=== PATIENT | female | born 1955 | race African-American/Black ===

== ENCOUNTER 2017-07-25 10:12 | Outpatient (CLI) | payer MEDICARE ==
--- NOTE | 2017-07-25 12:09 | SJPRAD ---
LEFT KNEE TWO VIEWS: History: Bilateral knee pain. FINDINGS/IMPRESSION: Mild degenerative changes are present. No fracture or dislocation or bony destruction is seen. POS: [facility]
--- NOTE | 2017-07-25 12:10 | SJPRAD ---
RIGHT KNEE TWO VIEWS: History: Bilateral knee pain. FINDINGS/IMPRESSION: Mild degenerative change is present. No fracture, dislocation, or bony destruction is seen. POS: [facility]
== END 2017-07-25 10:13 | disposition home or self-care (01) ==
LOC: MWLC RAD 10:12
PROVIDERS: ATTEND Family Medicine
DX: M25.562 Pain in left knee (principal); M17.0 Bilateral primary osteoarthritis of knee

== ENCOUNTER 2017-11-23 12:25 | Outpatient (CLI) | payer MEDICARE ==
--- NOTE | 2017-11-23 13:19 | ULT ---
LEFT LOWER EXTREMITY VENOUS ULTRASOUND WITH DOPPLER: Date; 11/23/17 HISTORY: Left lower leg edema. COMPARISON: 02/02/06. TECHNIQUE: Millard scale, color flow, Doppler imaging, and spectral waveform analysis performed of the left lower e xtremity deep venous system. FINDINGS: There is compressibility, presence of flow, and augmentation in the common femoral vein, femoral vein , and popliteal vein. There is flow in the greater saphenous vein, profunda vein, and posterior tibia l vein. IMPRESSION: No evidence of thrombus in the left lower extremity deep venous system. POS: [facility]
== END 2017-11-23 12:26 | disposition home or self-care (01) ==
LOC: ULT 12:25
PROVIDERS: ATTEND Family Medicine
DX: M79.89 Other specified soft tissue disorders (principal)

== ENCOUNTER 2018-03-08 08:10 | Outpatient (CLI) | payer MEDICARE | END 2018-03-08 08:11 | disposition home or self-care (01) | LOC: BICMAMMO 08:10 | PROVIDERS: ATTEND Family Medicine | DX: Z12.31 Encounter for screening mammogram for malignant neoplasm of breast (principal); Z80.3 Family history of malignant neoplasm of breast | CPT/HCPCS: 77063; 77067 ==

== ENCOUNTER 2019-01-23 09:16 | Outpatient (CLI) | payer MEDICARE ==
--- NOTE | 2019-01-23 10:53 | HP ---
HISTORY OF PRESENT ILLNESS: Ms. Jaki Johnston is a very pleasant 63-year-old accompanied by her daughter, who presents to the [facility] for evaluation of lymphedema, which has been present for approximately 1 year. Specifically, the patient reports swelling and erythema of her left lower extremity over this period of time. The patient states she has not been treated with any antibiotics in the past for the erythema of her left anterior lower leg. She states that she has utilized a compression garment, which she acquired from her brother, "every now and then." She states that she is unsure as to whether this is a prescription strength compression garment or not. She states that she has been utilizing this garment for approximately 2 months. The patient was referred to the [facility] Center by Dr. Leah Jamil on 12/18/2018. PAST MEDICAL HISTORY: 1. Hypertension. 2. Diabetes mellitus. 3. Hypothyroidism. 4. Gastroesophageal reflux disease. 5. History of CVA. 6. Asthma. 7. Congestive heart failure, diastolic. 8. Obstructive sleep apnea. 9. Coronary artery disease. 10. Peripheral vascular disease. 11. Chronic renal failure. 12. Left adrenal adenoma. 13. Gout. PAST SURGICAL HISTORY: 1. x3. 2. Bilateral tubal ligation. 3. Left shoulder surgery. 4. Appendectomy. 5. Hysterectomy. MEDICATIONS: 1. Glipizide. 2. Allopurinol. 3. Hydralazine. 4. Amlodipine. 5. Gabapentin. 6. Atorvastatin. 7. Torsemide. 8. Potassium chloride. 9. Levothyroxine. 10. Advair. 11. ProAir. 12. Flonase. 13. Levemir. 14. Humalog. 15. Coreg. 16. Isosorbide. ALLERGIES: SULFA. SOCIAL HISTORY: Social history is significant for tobacco use of up to 2 packs of cigarettes per day for 10 to 15 years. The patient states that she stopped smoking in 2001. The patient admits to only the rare consumption of alcohol in the past. FAMILY HISTORY: Family history is significant for diabetes mellitus. The patient states that she has 3 sisters and 1 brother, who were diagnosed with diabetes mellitus. Family history is also significant for coronary artery disease. The patient states that she has 1 brother and 2 sisters, who were diagnosed with coronary artery disease. PHYSICAL EXAMINATION: VITAL SIGNS: Temperature 98.0, pulse 91, respirations 22, and blood pressure 166/73. GENERAL: A 63-year-old female sitting on chair in examination room, in no acute distress. HEENT: Normocephalic, atraumatic. NECK: No nuchal rigidity. CHEST: Clear to auscultation. CARDIOVASCULAR: Regular rate and rhythm. ABDOMEN: Soft. EXTREMITIES: No open wounds are present over the left lower leg. Erythema of the left anterior lower leg is present consistent with stasis changes. No maceration of the skin of the left lower leg is noted. A dorsalis pedis pulse is easily palpable on the left. Lymphedema of the left lower leg is present on today's exam. Circumferences at the foot, ankle, calf, and knee are 27 cm, 35 cm, 55 cm, and 50.5 cm. LABORATORY DATA: Accu-Chek 158 ASSESSMENT AND PLAN: 1. Lymphedema tarda. The 3M Coban 2 Layer Compression System will be applied to the left foot and lower leg today. No antibiotics will be prescribed. Today based upon the appearance of the left lower extremity, I will see Ms. Johnston again in 1 week. The patient and her daughter understand and are in agreement with the preceding treatment plan. 2. Hypertension. 3. Diabetes mellitus. The patient's Accu-Chek in clinic today is 158. 4. Hypothyroidism. 5. Gastroesophageal reflux disease. 6. Cerebrovascular accident in 2001. 7. Asthma. 8. Congestive heart failure, diastolic. 9. Obstructive sleep apnea. 10. Coronary artery disease. 11. Peripheral vascular disease. 12. Chronic renal failure. 13. Left adrenal adenoma. 14. Gout. Job ID: [id number]
== END 2019-01-23 09:17 | disposition home or self-care (01) ==
LOC: WCC 09:16
PROVIDERS: ATTEND Family Medicine
DX: I89.0 Lymphedema, not elsewhere classified (principal); I13.0 Hypertensive heart and chronic kidney disease with heart failure and stage 1 through stage 4 chronic kidney disease, or unspecified chronic kidney disease; I50.30 Unspecified diastolic (congestive) heart failure; N18.9 Chronic kidney disease, unspecified; J45.909 Unspecified asthma, uncomplicated; K21.9 Gastro-esophageal reflux disease without esophagitis; I25.10 Atherosclerotic heart disease of native coronary artery without angina pectoris; M10.9 Gout, unspecified; D35.02 Benign neoplasm of left adrenal gland; E11.51 Type 2 diabetes mellitus with diabetic peripheral angiopathy without gangrene; G47.33 Obstructive sleep apnea (adult) (pediatric); E03.9 Hypothyroidism, unspecified; E11.22 Type 2 diabetes mellitus with diabetic chronic kidney disease; Z86.73 Personal history of transient ischemic attack (TIA), and cerebral infarction without residual deficits
CPT/HCPCS: 29581; 36416; 99203; G0463

== ENCOUNTER 2019-01-30 10:09 | Outpatient (CLI) | payer MEDICARE ==
--- NOTE | 2019-01-30 10:22 | PRG ---
DATE OF SERVICE: 01/30/2019 HISTORY OF PRESENT ILLNESS: Ms. Jaki Johnston is a very pleasant 63-year-old accompanied by her daughter, who presents to the [facility] for evaluation of lymphedema, which the patient previously stated had been present for approximately 1 year. Specifically, the patient reported swelling and erythema of her left lower extremity over this period of time. The patient stated she had not been treated with any antibiotics in the past for the erythema of her left anterior lower leg. She stated that she had utilized a compression garment, which she acquired from her brother "every now and then." She stated that she was unsure as to whether the garment was a prescription strained compression garment or not. She stated that she had been utilizing the garment for approximately 2 months when she initially presented to the [facility] Center. The patient was referred to the Wound Center by Dr. Leah Jamil on 12/18/2018. PHYSICAL EXAMINATION: VITAL SIGNS: Temperature 97.9, pulse 85, respirations 18, and blood pressure 198/93. Accu-Chek 127. EXTREMITIES: No open wounds are present over the left lower leg. Erythema of the left anterior lower leg is present consistent with stasis changes. No maceration of the skin of the left lower leg is noted. A dorsalis pedis pulse is easily palpable on the left. Lymphedema of the left lower leg is present on today's exam. Circumferences at the foot, ankle, calf, and knee are 26 cm, 32 cm, 57 cm, and 52 cm. ASSESSMENT AND PLAN: 1. Lymphedema tarda. The 3M Coban 2 Layer Compression System will be applied to the left foot and lower leg today. I will see Ms. Johnston again in 1 week. The patient has been given a prescription for compression garments, knee-high, open or closed toe to yield a compression of 20-30 mmHg. 2. Hypertension. 3. Diabetes mellitus. The patient's Accu-Chek in clinic today is 127. 4. Hypothyroidism. 5. Gastroesophageal reflux disease. 6. Cerebrovascular accident in 2001. 7. Asthma. 8. Congestive heart failure, diastolic. 9. Obstructive sleep apnea. 10. Coronary artery disease. 11. Peripheral vascular disease. 12. Chronic renal failure. 13. Left adrenal adenoma. 14. Gout. Job ID: [id number]
== END 2019-01-30 10:10 | disposition home or self-care (01) ==
LOC: WCC 10:09
PROVIDERS: ATTEND Family Medicine
DX: I89.0 Lymphedema, not elsewhere classified (principal); I13.0 Hypertensive heart and chronic kidney disease with heart failure and stage 1 through stage 4 chronic kidney disease, or unspecified chronic kidney disease; E11.22 Type 2 diabetes mellitus with diabetic chronic kidney disease; I50.32 Chronic diastolic (congestive) heart failure; N18.9 Chronic kidney disease, unspecified; K21.9 Gastro-esophageal reflux disease without esophagitis; E03.9 Hypothyroidism, unspecified; J45.909 Unspecified asthma, uncomplicated; I63.9 Cerebral infarction, unspecified; I25.10 Atherosclerotic heart disease of native coronary artery without angina pectoris; G47.33 Obstructive sleep apnea (adult) (pediatric); I73.9 Peripheral vascular disease, unspecified; M10.9 Gout, unspecified; D35.02 Benign neoplasm of left adrenal gland
CPT/HCPCS: 36416

== ENCOUNTER 2019-02-13 09:04 | Outpatient (CLI) | payer MEDICARE ==
--- NOTE | 2019-02-13 10:16 | PRG ---
DATE OF SERVICE: 02/13/2019 HISTORY: Ms. Jaki Johnston is a very pleasant 63-year-old, who presents to the [facility] for evaluation of lymphedema, which the patient previously stated had been present for approximately 1 year. Specifically, the patient reported swelling and erythema of her left lower extremity over this period of time. The patient stated she had not been treated with any antibiotics in the past for the erythema of her left anterior lower leg. The patient stated that she had utilized a compression garment, which she acquired from her brother "every now and then." She stated that she was unsure as to whether the garment was a prescription strength compression garment or not. She stated that she had been utilizing the garment for approximately 2 months when she initially presented to the [facility] Center. The patient was referred to the Wound Center by Dr. Leah Jamil on 12/18/2018. PHYSICAL EXAMINATION: VITAL SIGNS: Temperature 97.8, pulse 89, blood pressure 199/86. Accu-Chek 84. EXTREMITIES: No open wounds are present over the left lower leg. Erythema of the left anterior lower leg is present. No maceration of the skin of the left lower leg is noted. A dorsalis pedis pulse is easily palpable on the left. Lymphedema of the left lower leg is present on exam today. Circumferences at the foot, ankle, calf, and knee are 26.5 cm, 36 cm, 59 cm, and 52 cm. ASSESSMENT AND PLAN: 1. Lymphedema tarda. Arrangements will continue for in-home lymphedema therapy on 03/20/2019. The patient has been asked to return to clinic on 02/28/2019. The patient was previously given a prescription for compression garments, knee-high, open or closed toe to yield a compression of 20 to 30 mmHg. 2. Left lower extremity cellulitis. The patient has been given a prescription for Keflex 500 mg #21 p.o. b.i.d. x10 days. 3. Hypertension. 4. Diabetes mellitus. The patient's Accu-Chek in clinic today is 84. 5. Hypothyroidism. 6. Gastroesophageal reflux disease. 7. Cerebrovascular accident in 2001. 8. Asthma. 9. Congestive heart failure, diastolic. 10. Obstructive sleep apnea. 11. Coronary artery disease. 12. Peripheral vascular disease. 13. Chronic renal failure. 14. Left adrenal adenoma. 15. Gout. Job ID: [id number]
== END 2019-02-13 09:05 | disposition home or self-care (01) ==
LOC: WCC 09:04
PROVIDERS: ATTEND Family Medicine
DX: I89.0 Lymphedema, not elsewhere classified (principal); L03.116 Cellulitis of left lower limb; I13.0 Hypertensive heart and chronic kidney disease with heart failure and stage 1 through stage 4 chronic kidney disease, or unspecified chronic kidney disease; E11.22 Type 2 diabetes mellitus with diabetic chronic kidney disease; I50.30 Unspecified diastolic (congestive) heart failure; N18.9 Chronic kidney disease, unspecified; E03.9 Hypothyroidism, unspecified; K21.9 Gastro-esophageal reflux disease without esophagitis; J45.909 Unspecified asthma, uncomplicated; G47.33 Obstructive sleep apnea (adult) (pediatric); I25.10 Atherosclerotic heart disease of native coronary artery without angina pectoris; I73.9 Peripheral vascular disease, unspecified; M10.9 Gout, unspecified; D35.02 Benign neoplasm of left adrenal gland; Z86.73 Personal history of transient ischemic attack (TIA), and cerebral infarction without residual deficits
CPT/HCPCS: 97602

== ENCOUNTER 2019-02-28 09:24 | Outpatient (CLI) | payer MEDICARE ==
--- NOTE | 2019-02-28 10:46 | PRG ---
DATE OF SERVICE: 02/28/2019 HISTORY: Ms. Jaki Johnston is a very pleasant 63-year-old, who presents to the [facility] Center for evaluation of lymphedema, which the patient previously stated had been present for approximately 1 year. Specifically, the patient reported swelling and erythema of her left lower extremity over this period of time. The patient stated she had not been treated with any antibiotics in the past for the erythema of her left anterior lower leg. The patient stated that she had utilized a compression garment, which she acquired from her brother, "every now and then." She stated that she was unsure as to whether the garment was a prescription strength compression garment or not. She stated that she had been utilizing the garment for approximately 2 months when she initially presented to the W[facility] Center. The patient was referred to the Wound Center by Dr. Leah Jamil on 12/18/2018. At the time of the patient's last visit, Ms. Johnston was placed on Keflex 500 mg, #20, one p.o. b.i.d. x10 days for left lower extremity cellulitis. The patient continues to experience erythema and swelling of her left lower leg. PHYSICAL EXAMINATION: VITAL SIGNS: Temperature 98.1, pulse 83, respirations 21, blood pressure 133/65. Accu-Chek 137. EXTREMITIES: No open wounds are present over the left lower leg. Erythema of the left lower leg is present. No maceration of the skin of the left lower leg is noted. Lymphedema of the left lower leg is present on today's exam. Circumferences at the ankle, calf, and knee are 37 cm, 55 cm, and 55 cm. ASSESSMENT AND PLAN: 1. Lymphedema tarda. Arrangements will continue for in-home lymphedema therapy. The patient will return to the Wound Center on 04/04/2019. The patient was previously given a prescription for compression garments, knee-high, open or closed toe to yield a compression of 20 to 30 mmHg. 2. Left lower extremity cellulitis. The patient has been given a prescription for clindamycin 300 mg, #30, one p.o. t.i.d. x10 days. Arrangements will also be made for MRI of the left lower leg to look for findings suggestive of osteomyelitis. 3. Hypertension. 4. Diabetes mellitus. The patient's Accu-Chek in clinic today is 137. 5. Hypothyroidism. 6. Gastroesophageal reflux disease. 7. Cerebrovascular accident in 2001. 8. Asthma. 9. Congestive heart failure, diastolic. 10. Obstructive sleep apnea. 11. Coronary artery disease. 12. Peripheral vascular disease. 13. Chronic renal failure. 14. Left adrenal adenoma. 15. Gout. Job ID: [id number]
== END 2019-02-28 09:25 | disposition home or self-care (01) ==
LOC: WCC 09:24
PROVIDERS: ATTEND Family Medicine
DX: I89.0 Lymphedema, not elsewhere classified (principal); L03.116 Cellulitis of left lower limb; E11.22 Type 2 diabetes mellitus with diabetic chronic kidney disease; I13.0 Hypertensive heart and chronic kidney disease with heart failure and stage 1 through stage 4 chronic kidney disease, or unspecified chronic kidney disease; I50.30 Unspecified diastolic (congestive) heart failure; N18.9 Chronic kidney disease, unspecified; J45.909 Unspecified asthma, uncomplicated; M10.9 Gout, unspecified; D35.02 Benign neoplasm of left adrenal gland; E11.51 Type 2 diabetes mellitus with diabetic peripheral angiopathy without gangrene; I25.10 Atherosclerotic heart disease of native coronary artery without angina pectoris; G47.33 Obstructive sleep apnea (adult) (pediatric); Z86.73 Personal history of transient ischemic attack (TIA), and cerebral infarction without residual deficits
CPT/HCPCS: 97602

== ENCOUNTER 2019-04-04 12:12 | Outpatient (CLI) | payer MEDICARE ==
--- NOTE | 2019-04-04 11:35 | PRG ---
DATE OF SERVICE: 04/04/2019 HISTORY: Ms. Jaki Johnston is a very pleasant 63-year-old, who presents to the [facility] for evaluation of lymphedema, which the patient previously stated had been present for approximately 1 year. Specifically, the patient reported swelling and erythema of her left lower extremity over this period of time. Prior to being seen in the Wound Center, the patient stated she had not been treated with any antibiotics for the erythema of her left anterior lower leg. The patient stated that she had utilized a compression garment, which she acquired from her brother , "every now and then." She stated that she was unsure as to whether the garment was a prescription strength compression garment or not. She stated that she had been utilizing the garment for approximately 2 months when she initially presented to the W[facility] Center. The patient was referred to the Wound Center by Dr. Leah Jamil on 12/18/2018. After being seen in the Wound Center, the patient was treated for left lower extremity cellulitis with Keflex followed by clindamycin. Today, the patient states that the swelling of her right and left lower extremities has returned to baseline and the erythema of the left anterior lower leg is also of the degree with which she presented initially to the Wound Center. PHYSICAL EXAMINATION: VITAL SIGNS: Temperature 98.1, pulse 74, respirations 18, blood pressure 136/ 65. Accu-Chek 85. EXTREMITIES: No open wounds are present over the right or left lower leg. Erythema of the left anterior lower leg is present. No maceration of the skin of the left lower leg is present. Lymphedema of the right and left lower legs is present on exam today. Hyperpigmentation of the skin of the right and left lower legs secondary to hemosiderin deposition is noted on exam today. ASSESSMENT AND PLAN: 1. Lymphedema tarda. Arrangements will continue for in-home lymphedema therapy. The patient was previously given a prescription for compression garments, knee- high, open or closed toe to yield a compression of 20 to 30 mmHg. 2. Erythema of left anterior lower leg. The degree of erythema of the left anterior lower leg is now at baseline. The patient was previously treated for left lower extremity cellulitis with Keflex followed by clindamycin. I have discussed the treatment plan with Dr. Lito Valladares of Infectious Diseases and the patient is scheduled to see Dr. Valladares on 04/30/2019 at 10 a.m. I have explained to the patient that imaging will be obtained after evaluation by Dr. Valladares if warranted. 3. Hypertension. 4. Diabetes mellitus. The patient's Accu-Chek in clinic today is 85. 5. Hypothyroidism. 6. Gastroesophageal reflux disease. 7. Cerebrovascular accident in 2001. 8. Asthma. 9. Congestive heart failure, diastolic. 10. Obstructive sleep apnea. 11. Coronary artery disease. 12. Peripheral vascular disease. 13. Chronic renal failure. 14. Left adrenal adenoma. 15. Gout. Job ID: [id number] [facility]
== END 2019-04-04 12:13 | disposition home or self-care (01) ==
LOC: WCC 12:12
PROVIDERS: ATTEND Family Medicine
DX: I89.0 Lymphedema, not elsewhere classified (principal); L53.9 Erythematous condition, unspecified; E11.22 Type 2 diabetes mellitus with diabetic chronic kidney disease; I13.0 Hypertensive heart and chronic kidney disease with heart failure and stage 1 through stage 4 chronic kidney disease, or unspecified chronic kidney disease; I50.30 Unspecified diastolic (congestive) heart failure; N18.9 Chronic kidney disease, unspecified; J45.909 Unspecified asthma, uncomplicated; E03.9 Hypothyroidism, unspecified; K21.9 Gastro-esophageal reflux disease without esophagitis; I73.9 Peripheral vascular disease, unspecified; G47.33 Obstructive sleep apnea (adult) (pediatric); I25.10 Atherosclerotic heart disease of native coronary artery without angina pectoris; D35.02 Benign neoplasm of left adrenal gland; M10.9 Gout, unspecified; Z86.73 Personal history of transient ischemic attack (TIA), and cerebral infarction without residual deficits
CPT/HCPCS: 97139; G0463; 99212

== ENCOUNTER 2019-08-08 12:34 | Observation (INO) | payer MEDICARE ==
[2019-08-08] MEDS ORDERED: Lorazepam 2 MG/ML VIAL ONE (13:37)
--- NOTE | 2019-08-08 13:59 | RAD ---
Exam: Chest one view HISTORY:Dyspnea Comparison: 04/30/2017 FINDINGS: Cardiac silhouette:Cardiomegaly. Aorta: Atherosclerosis of the aortic knob Pulmonary vessels: Slightly prominent Costophrenic angles: Clear LUNGS: No masses or consolidation. Pneumothorax: None Osseous abnormalities: None IMPRESSION: 1. Cardiomegaly with mild pulmonary vascular prominence. Correlate for volume overload. 2. Atherosclerosis
[2019-08-08 14:16] LABS: Hemoglobin 14.1 g/dL (12.0-16.0); Mean Corpuscular HGB CONC 32.1 g/dL (32.0-36.0); Mean Corpuscular Hemoglobin 27.5 pg (27.0-31.0); Mean Corpuscular Volume 85.8 fL (78.0-98.0); Mean Platelet Volume 10.5 fL (7.4-10.4); Platelet Count 195 thou/uL (130-400); RBC Distribution Width 14.6 % (11.5-14.5); Red Blood Cell (RBC) Count 5.12 mill/uL (4.20-5.40); White Blood Cell (WBC) Count 6.6 thou/uL (4.8-10.8)
[2019-08-08 14:33] LABS: ALT (SGPT) 15 U/L (8-55); AST (SGOT) 16 U/L (5-34); Albumin 3.9 g/dL (3.4-4.8); Alkaline Phosphatase 152 U/L (40-110); Anion Gap 12 mmol/L (10-20); BUN (Urea Nitrogen) 15 mg/dL (9.8-20.1); Bilirubin, Total 0.6 mg/dL (0.2-1.2); CK (CPK) 283 U/L (29-168); Calc. Creatinine Clearance 0 mL/min (70-130); Calcium 9.6 mg/dL (7.8-10.44); Carbon Dioxide 31 mmol/L (23-31); Chloride 102 mmol/L (98-107); Estimated GFR-MDRD 41; Globulin 3.9 g/dL (2.4-3.5); Glucose 203 mg/dL (80-115); Potassium 3.5 mmol/L (3.5-5.1); Protein, Total 7.8 g/dL (6.0-8.3); Sodium 141 mmol/L (136-145)
[2019-08-08 14:39] LABS: Eosinophils 3 % (0-10); Large Platelets SLIGHT; Lymphocytes 19 % (21-51); MDiff Complete? YES; Monocytes 3 % (0-10); Neutrophil 75 % (42-75); Platelet Morphology Comment Appears Adequate
[2019-08-08] MEDS ORDERED: Morphine 10 MG/ML VIAL ONE ×2 (14:54→16:35)
[2019-08-08] MEDS ORDERED: Aspirin 81 mg Enteric Coated Tablet ONE (14:54)
[2019-08-08 14:55] LABS: CKMB 1.5 ng/mL (0-6.6)
[2019-08-08 17:23] LABS: Troponin I 0.024 ng/mL (< 0.028)
[2019-08-08] MEDS ORDERED: Acetaminophen 650 MG Suppository PR PRN (17:43)
[2019-08-08] MEDS ORDERED: Ondansetron ODT 4 MG TAB PO PRN (17:43)
[2019-08-08] MEDS ORDERED: Ondansetron PF 4 MG/2 ML Vial IVP PRN (17:43)
[2019-08-08] MEDS ORDERED: Dextrose 50% Abboject 50 ML SYRINGE SLOW IVP PRN (17:51)
[2019-08-08] MEDS ORDERED: Dextrose 5% in Water 1,000 ML IV PRN (17:51)
[2019-08-08] MEDS ORDERED: HumaLOG 300 UNITS/3 ML VIAL SC PRN ×2 (17:51)
[2019-08-08 18:01] LABS: Actual Bicarbonate (HCO3a) 31.6 mEq/L (22-28); Base Excess (BEa) 4.5 mEq/L (-2.0 to +3.0); CO2 Tension 58.9 mmHg (35.0-45.0); Calcium, Ionized 1.16 mmol/L (1.12-1.30); Carboxyhemoglobin (COHb) 0.9 gm% (0.0-3.0); Hemoglobin (Hb) 12.8 g/dL (12.0-16.0); O2 Tension (PaO2) 73.6 mmHg (> 80.0); Potassium - ABG Lab 3.61 mmol/L (3.70-5.30); pH, Arterial 7.35 (7.35-7.45)
[2019-08-08 18:06] LABS: Puncture Site RRA
[2019-08-08 18:07] LABS: ALV-art Gradient 52.415 (0-20)
--- NOTE | 2019-08-08 19:17 | CT ---
CT Cervical Spine WO Con History: Neck pain. Syncope Comparison: None. Findings: The occipital condyles are intact. The odontoid process is intact. No acute fracture or mal alignment. The exam is limited due to photon starvation from habitus. Mild degenerative changes of the temporomandibular joints. The skull base is intact. The mastoids are clear. Moderate vascular calcifications of the carotid bulbs. No definite transverse process fracture. Posterior ribs are intact. Lung apices are clear. Impression: No acute fracture or malalignment of the cervical spine.
[2019-08-08 20:17] VITALS: BMI 61.0
[2019-08-08 20:25] LABS: Troponin I 0.026 ng/mL (< 0.028)
[2019-08-08] MEDS ORDERED: Famotidine/PF 20 mg/2ml Vial SLOW IVP SCH (21:00)
[2019-08-08] MEDS ORDERED: Famotidine 20 MG TAB PO SCH ×2 (21:30→22:00)
--- NOTE | 2019-08-08 21:35 | ULT ---
US Venous Doppler Bilat History: Lower extremity edema and pain Comparison: None. Findings: Real-time grayscale, color, and spectral analysis of the bilateral lower extremity venous s ystem was performed. The common femoral, femoral, proximal portions greater saphenous and deep femoral veins as well as the popliteal and posterior tibial veins were interrogated. Normal flow, augmentation, and compression. Impression: 1. No deep venous thrombosis. 2. Lower extremity edema bilaterally.
[2019-08-08] MEDS ORDERED: Atorvastatin Calcium 40 MG TAB PO SCH (22:00)
[2019-08-08] MEDS ORDERED: Carvedilol 25 MG TAB PO SCH (22:00)
[2019-08-08] MEDS ORDERED: Insulin Glargine 62 UNITS in Pre-Filled Syringe 1 EACH SC SCH (22:00)
[2019-08-08] MEDS ORDERED: hydrALAZINE 25 MG TAB PO SCH (22:00)
--- NOTE | 2019-08-09 00:29 | HP ---
CHIEF COMPLAINT: Syncope and shortness of breath due to anxiety. HISTORY OF PRESENT ILLNESS: Ms. Johnston is a very pleasant 63-year-old woman, with a known history of COPD for which she does not require oxygen, however, the CPAP machine, which she uses at night for orthopnea, she has been using intermittently throughout the day due to shortness of breath with exertion. Per family and the patient, this has been longstanding. Today, the patient presents with an episode of hyperventilation followed by syncope after she received bad news. She lives with her family at the time and was sitting and therefore was able to be caught by her family. She lost consciousness for a few seconds. It did happen 2 or 3 times. The patient had labored breathing and seemed to be experiencing anxiety prior to fainting. She denies having any chest pain. Has been well in herself in recent days. She reports having a history of CHF, hypertension, and diabetes. She does follow with her doctor regularly and her multiple sclerosis nurse is Dr. Quezada. In the emergency department, she was complaining of severe pain in her neck. Family states that when she fainted, her head "snapped backward" before they were able to capture. Due to the severe neck pain, the patient was given morphine. It appears she received 8 mg of morphine at 3:00 p.m. and also was given 1 mg of lorazepam around 2:00 p.m. Laboratory studies in the ER demonstrated a normal full blood count. She had a creatinine of 1.55 and GFR of 41, both slightly worse from baseline. She was noted to have a CK of 283 and an indeterminate troponin of 0.035, therefore given 325 mg of aspirin with plans to trend her troponins. Her BNP was normal at 62.6. A chest x-ray was obtained, demonstrating cardiomegaly with mild pulmonary vascular prominence. There was atherosclerosis present. The last echo on file was from February 2017. REVIEW OF SYSTEMS: The patient denies having any issues with her appetite. Denies any nausea or vomiting. Denies any abdominal pain or cramping, but does report having issues with constipation and states she has not had a bowel movement in one week. She does report having flatus. She states this is typical for her. Has been eating as normal. Denies having any urinary symptoms. Again, no chest pain or palpitations. She does have shortness of breath at baseline and it does not seem to be worse than it has been in the last several weeks. PAST MEDICAL HISTORY: 1. Morbid obesity. 2. Chronic congestive diastolic heart failure: 3. Severe coronary artery disease. Previously recommended CABG; however, due to her weight, she was not felt to be a good candidate. She had been advised bariatric surgery. Previously seen by Dr. Horton. 4. Diabetes mellitus. 5. Obstructive sleep apnea, on home CPAP, she does use this throughout the day intermittently for shortness of breath. Has never had home O2 eval. 6. CVA with residual left-sided weakness. 7. Hypertension. 8. Dyslipidemia. 9. Hypothyroidism. 10. Chronic back pain. 11. Peripheral arterial disease. 12. Chronic vaginitis. 13. Fatty liver. 14. Left adrenal mass. 15. Chronic kidney disease. PAST SURGICAL HISTORY: 1. PTCA with PCI in 2009. 2. Cardiac catheterization in 2011 showing severe three-vessel coronary artery disease. 3. Hysterectomy. 4. Left rotator cuff surgery. 5. x3. SOCIAL HISTORY: The patient lives with her family. She previously smoked 2 packs per day, but quit more than 10 years ago. No alcohol use or illicit drug use. ALLERGIES: SULFA. CURRENT MEDICATIONS: 1. Tylenol. 2. Furosemide. 3. Glipizide. 4. Isosorbide. 5. Levothyroxine. 6. Allopurinol. 7. Atorvastatin. 8. Calcitriol. 9. Bupropion. PHYSICAL EXAMINATION: GENERAL: The patient is morbidly obese and appears somnolent, but easily woken and able to answer questions. HEENT: Normocephalic and atraumatic. Pupils are equal, round, reactive to light. Extraocular movements intact. Oropharynx is clear. NECK: Supple. She does have tenderness along the C-spine with some discomfort with movement. LUNGS: Clear to auscultation with reduced breath sounds at the bilateral bases. It is difficult given her body habitus. CARDIAC: Regular rate and rhythm. ABDOMEN: Soft, nontender, nondistended. Bowel sounds present. Morbidly obese. EXTREMITIES: Bilateral lower extremity edema, more significant on the left with signs of chronic stasis dermatitis with some bullae. There is a slight erythematous appearance with very slight warm to touch on the anterior left lower leg. The patient states it always looks like this and she has been treated in the past for cellulitis. NEUROLOGIC: Alert and oriented x3. The patient is drowsy, likely due to morphine and Ativan given, but easily woken and able to answer questions as well as follow commands. INVESTIGATIONS: As mentioned above in HPI. IMPRESSION AND PLAN: 1. Ms. Johnston is a very pleasant 63-year-old woman, who presents following a syncopal episode after hearing bad news and having an episode of anxiety with hyperventilation. She likely had a vasovagal episode. She does have chronic shortness of breath likely due to combination of her chronic obstructive pulmonary disease and congestive heart failure. She no longer smokes, but did smoke very heavily in the past. Has never been assessed for home O2 eval and has been using her CPAP intermittently to help with her shortness of breath while at home. She is known to Dr. Quezada, but does not recall the last time she saw him. She did see her primary care physician about 3 months ago. The patient's breathing appears slightly labored, but the patient and family state this is her baseline. Saturations are 92% on room air. We will continue to monitor. Chest x-ray was done and unremarkable. I have requested home O2 eval. 2. With regard to her neck pain, family states her head fell hard backward when she fainted. We will obtain a CT of the cervical spine given the cervical spine tenderness. The patient given morphine in the emergency department. No pain at present. 3. Syncope, likely vasovagal episode due to stress/anxiety attack. We will obtain carotid Dopplers. We will repeat echo since it has been more than 2 years. We will obtain orthostatic blood pressure. EKG done and unremarkable. The patient will remain on continuous cardiac monitoring. 4. Hypertension. Resume home medications once verified. Monitor blood pressure. 5. Diabetes mellitus. Resume home insulin once verified. Hold oral medications. Insulin sliding scale initiated. Monitor blood glucose. 6. Hypothyroidism. Resume home medications once verified. 7. Chronic obstructive pulmonary disease. Jaida p.r.n. The patient's family will bring her CPAP machine. 8. Left lower extremity swelling/erythema. The patient states this is chronic and stable. We will add lactic acid and monitor white count. We will hold antibiotics for now. We will obtain a venous Doppler to rule out deep venous thrombosis. The patient states the left leg is always more swollen than the right. 9. Gastrointestinal prophylaxis. Resume home medications. 10. Code status full. The patient's case to be discussed with attending for further recommendations. Job ID: [id number]
[2019-08-09 05:01] LABS: #Eosinphils 0.2 thou/uL (0.0-0.7); #Lymphocytes 1.6 thou/uL (1.20-3.40); #Monocytes 0.5 thou/uL (0.11-0.59); #Neutrophils 4.2 thou/uL (1.40-6.50); %Basophils 0.1 % (0.0-1.0); %Eosinophils 2.8 % (0.0-10.0); %Lymphocytes 24.1 % (21.0-51.0); %Monocytes 8.3 % (0.0-10.0); %Neutrophils 64.7 % (42.0-75.0); Hemoglobin 12.8 g/dL (12.0-16.0); Mean Corpuscular HGB CONC 32.2 g/dL (32.0-36.0); Mean Corpuscular Hemoglobin 27.9 pg (27.0-31.0); Mean Corpuscular Volume 86.6 fL (78.0-98.0); Mean Platelet Volume 9.7 fL (7.4-10.4); Platelet Count 231 thou/uL (130-400); RBC Distribution Width 14.4 % (11.5-14.5); Red Blood Cell (RBC) Count 4.59 mill/uL (4.20-5.40); White Blood Cell (WBC) Count 6.4 thou/uL (4.8-10.8)
[2019-08-09 05:19] LABS: Anion Gap 12 mmol/L (10-20); BUN (Urea Nitrogen) 15 mg/dL (9.8-20.1); Calc. Creatinine Clearance 107 mL/min (70-130); Calcium 8.9 mg/dL (7.8-10.44); Carbon Dioxide 28 mmol/L (23-31); Chloride 102 mmol/L (98-107); Estimated GFR-MDRD 45; Glucose 221 mg/dL (80-115); Potassium 3.8 mmol/L (3.5-5.1); Sodium 138 mmol/L (136-145)
[2019-08-09] MEDS: Levothyroxine Sodium 100 MCG TAB PO SCH (06:00)
[2019-08-09] MEDS ORDERED: INSULIN DETEMIR SQ SCH (09:00)
[2019-08-09] MEDS: Aspirin 325 MG TAB PO SCH (09:04)
[2019-08-09] MEDS: Bupropion 150 MG SR TAB PO SCH (09:04)
[2019-08-09] MEDS: hydrALAZINE 25 MG TAB PO SCH ×3 (09:04→21:39)
[2019-08-09] MEDS: Famotidine 20 MG TAB PO SCH ×2 (09:04→21:39)
[2019-08-09] MEDS: Calcitriol 0.25 MCG CAP PO SCH (09:04)
[2019-08-09] MEDS: HumaLOG 300 UNITS/3 ML VIAL SC SCH ×3 (09:05→21:41)
[2019-08-09] MEDS: Amlodipine 10 MG TAB PO SCH (09:05)
[2019-08-09] MEDS: Allopurinol 100 MG TAB PO SCH (09:05)
[2019-08-09] MEDS: Carvedilol 25 MG TAB PO SCH ×2 (09:05→21:39)
[2019-08-09] MEDS: Insulin Glargine 62 UNITS in Pre-Filled Syringe 1 EACH SC SCH ×2 (09:06→21:35)
--- NOTE | 2019-08-09 10:30 | ULT ---
BILATERAL CAROTID DUPLEX ULTRASOUND: Date: 08/09/19 HISTORY: Syncope. FINDINGS: Real-time color Doppler evaluation of the right and left carotid systems was performed. This does not show any significant plaque formation. On the right side, peak systolic velocities of the common carotid were 67 cm/second. Internal carotid velocities were 67 cm/second and external carotid velocities were 66 cm/second. On the left side, peak systolic velocities of the common carotid were 89 cm/second. Internal carotid velocities were 95 cm/second and external carotid velocities were 53 cm/second. Vertebral flow was antegrade bilaterally. IMPRESSION: No evidence of hemodynamically significant stenosis of either internal carotid artery. POS: TPC
[2019-08-09] MEDS: Acetaminophen 325 MG TAB PO PRN ×2 (10:38→21:40)
[2019-08-09] MEDS ORDERED: Atorvastatin Calcium 40 MG TAB PO SCH (21:00)
[2019-08-10] MEDS: Levothyroxine Sodium 100 MCG TAB PO SCH (06:15)
--- NOTE | 2019-08-10 07:31 | PDOC.HOSPP ---
- Subjective Encounter Date: 08/09/19 Encounter Time: 17:00 Subjective: Patient seen and examined for syncope. No new episode. No CP. No other complaints. No overnight events - Objective Vital Signs & Weight: Vital Signs (12 hours) Temp Pulse Resp BP BP BP Pulse Ox 08/10/19 03:34 98.6 F 86 20 129/60 94 L 08/09/19 21:39 86 131/61 08/09/19 20:25 98.3 F 86 18 131/61 92 L Weight Weight 366 lb 14.4 oz I&O: 08/09/19 08/10/19 08/11/19 06:59 06:59 06:59 Intake Total 700 Output Total 900 Balance -200 Result Diagrams: 08/09/19 04:47 08/09/19 04:47 Additional Labs: Accuchecks 08/10/19 08/09/19 08/09/19 06:17 20:33 17:07 POC Glucose 145 H 118 H 103 08/09/19 11:08 POC Glucose 176 H EKG Reviewed by me: Yes (Tele SR) Hospitalist ROS - Review of Systems Respiratory: denies: cough, dry, shortness of breath, hemoptysis, SOB with excertion, pleuritic pain, sputum, wheezing, other Cardiovascular: denies: chest pain, palpitations, orthopnea, paroxysmal noc. dyspnea, edema, light headedness, other Gastrointestinal: reports: constipation. denies: nausea, vomiting, abdominal pain, diarrhea, melena, hematochezia, other - Medication Medications: Active Medications Generic Name Dose Route Start Last Admin Trade Name Freq PRN Reason Stop Dose Admin Acetaminophen 650 mg 08/08/19 17:43 08/09/19 21:40 Tylenol PO 650 mg Q4H PRN Administration Headache/Fever/Mild Pain (1-3) Allopurinol 200 mg 08/09/19 09:00 08/09/19 09:05 Zyloprim PO 200 mg DAILY RONY Administration Amlodipine Besylate 10 mg 08/09/19 09:00 08/09/19 09:05 Norvasc PO 10 mg DAILY RONY Administration Aspirin 325 mg 08/09/19 09:00 08/09/19 09:04 Aspirin PO 325 mg DAILY RONY Administration Atorvastatin Calcium 80 mg 08/09/19 21:00 08/09/19 21:40 Lipitor PO 80 mg HS RONY Administration Bupropion HCl 150 mg 08/09/19 09:00 08/09/19 09:04 Wellbutrin Sr PO 150 mg DAILY RONY Administration Calcitriol 0.25 mcg 08/09/19 09:00 08/09/19 09:04 Rocaltrol PO 0.25 mcg DAILY RONY Administration Carvedilol 25 mg 08/09/19 09:00 08/09/19 21:39 Coreg PO 25 mg BID RONY Administration Famotidine 20 mg 08/09/19 09:00 08/09/19 21:39 Pepcid PO 20 mg Q12HR RONY Administration Hydralazine HCl 100 mg 08/09/19 09:00 08/09/19 21:39 Apresoline PO 100 mg TID RONY Administration Insulin Glargine 62 units/ 0.62 mls @ 0 mls/hr 08/09/19 09:00 08/09/19 21:35 Miscellaneous Medication SC 0.3 mls BID RONY Administration Insulin Human Lispro 0 units 08/08/19 17:51 08/09/19 06:01 Humalog SC 2 unit .MILD SLIDING SCALE PRN Administration Mild Correctional Scale Insulin Human Lispro 0 units 08/08/19 17:51 08/08/19 22:33 Humalog SC 2 unit .BEDTIME SLIDING SC PRN Administration Bedtime Correctional Scale Insulin Human Lispro 20 units 08/09/19 09:00 08/09/19 21:41 Humalog SC Not Given TID RONY Isosorbide Mononitrate 60 mg 08/09/19 09:00 08/09/19 21:40 Imdur PO 60 mg TID RONY Administration Levothyroxine Sodium 100 mcg 08/09/19 06:00 08/10/19 06:15 Synthroid PO 100 mcg 0600 RONY Administration Ondansetron HCl 4 mg 08/08/19 17:43 08/09/19 10:38 Zofran Odt PO 4 mg Q6H PRN Administration Nausea/Vomiting - Exam General Appearance: NAD Heart: RRR, no gallops Respiratory: CTAB, no rales Gastrointestinal: soft, non-tender, normal bowel sounds Extremities: no cyanosis Hosp A/P - Plan DVT proph w/SCDs Syncope suspected to be due to Vasovagal episode Morbid obesity HTN HLD DM2 CAD PLAN Await Echo Cont tele monitoring Check Orthostatics Cont sliding scale Cont other meds
[2019-08-10] MEDS: Calcitriol 0.25 MCG CAP PO SCH (08:25)
[2019-08-10] MEDS: Aspirin 325 MG TAB PO SCH (08:25)
[2019-08-10] MEDS: Bupropion 150 MG SR TAB PO SCH (08:25)
[2019-08-10] MEDS: hydrALAZINE 25 MG TAB PO SCH (08:25)
[2019-08-10] MEDS: Insulin Glargine 62 UNITS in Pre-Filled Syringe 1 EACH SC SCH (08:26)
[2019-08-10] MEDS: Famotidine 20 MG TAB PO SCH (08:26)
[2019-08-10] MEDS: Amlodipine 10 MG TAB PO SCH (08:26)
[2019-08-10] MEDS: Allopurinol 100 MG TAB PO SCH (08:26)
[2019-08-10] MEDS: Carvedilol 25 MG TAB PO SCH (08:26)
[2019-08-10] MEDS: HumaLOG 300 UNITS/3 ML VIAL SC SCH (08:26)
[2019-08-10] MEDS ORDERED: Senokot S 8.6-50 MG TAB PO SCH (09:00)
[2019-08-10] MEDS ORDERED: Polyethylene Glycol 3350 17 GM Packet PO SCH (09:00)
[2019-08-10 12:15] VITALS: BP 162/72; TEMP 97.3
--- NOTE | 2019-08-11 00:09 | DIS ---
DATE OF ADMISSION: 08/08/2019 DATE OF DISCHARGE: 08/10/2019 DISCHARGE DISPOSITION: Home. FOLLOWUP: Follow up with primary care physician, Dr. Sanchez, in 1 week. ALLERGIES: PATIENT IS ALLERGIC TO SULFA. DISCHARGE MEDICATION: Doxazosin has been discontinued. All other home medications were left unchanged. Patient was seen and examined on the day of discharge. Denies any new complaints. BRIEF HOSPITAL COURSE: Patient is a 63-year-old female with multiple comorbidities, presented to the hospital with a syncopal episode along with shortness of breath after she received a bad news. Please refer to the history and physical for further details. The patient was monitored on the telemetry unit. Telemetry monitoring did not reveal significant arrhythmias. Bilateral lower extremity Doppler was negative. She also had a CT of the cervical spine that was negative for acute fractures or dislocation. Carotid Doppler was negative for hemodynamically significant stenosis. Echocardiogram showed ejection fraction of 55% to 60% with trace tricuspid regurgitation. Exact etiology of syncope appears to be unclear. It appears to be probably vasovagal in nature. Her blood pressure this morning was 129/60. She did not receive doxazosin during this hospital stay. All other home medications were left unchanged. FINAL DIAGNOSES: 1. Syncope, suspected to be due to vasovagal episode. 2. Morbid obesity with a BMI of 61.1. 3. Hypertension. 4. Hyperlipidemia. 5. Coronary artery disease. 6. Diabetes mellitus, type 2. 7. Chronic kidney disease, stage 3. 8. Slightly elevated troponin, probably secondary to demand ischemia/type 2 myocardial infarction. PLAN: Plan of care was discussed with the patient and the family in detail. They stated understanding. Job ID: [id number]
--- NOTE | 2019-08-17 13:13 | EKG ---
Test Reason : Blood Pressure : / mmHG Vent. Rate : 083 BPM Atrial Rate : 083 BPM P-R Int : 148 ms QRS Dur : 102 ms QT Int : 404 ms P-R-T Axes : 028 -21 085 degrees QTc Int : 474 ms Normal sinus rhythm Inferior infarct , age undetermined Anterior infarct , age undetermined Abnormal ECG Leftward axis Confirmed by RICKIE VOGEL, CHERISE ([id number]), editor school photograph BOBBY GUIDRY ([id number]) on 08/17/2019 1:13:19 PM Referred By: Confirmed By:CHERISE DAMIAN MD
== END 2019-08-10 13:58 | disposition home or self-care (01) ==
LOC: ERS 12:34 → 2SW 16:17
PROVIDERS: ADMIT Internal Medicine; ATTEND Internal Medicine
DX: R55 Syncope and collapse (principal); R06.4 Hyperventilation; F41.9 Anxiety disorder, unspecified; M54.2 Cervicalgia; I13.0 Hypertensive heart and chronic kidney disease with heart failure and stage 1 through stage 4 chronic kidney disease, or unspecified chronic kidney disease; E11.22 Type 2 diabetes mellitus with diabetic chronic kidney disease; N18.3 Chronic kidney disease, stage 3 (moderate); G47.33 Obstructive sleep apnea (adult) (pediatric); I50.32 Chronic diastolic (congestive) heart failure; I25.10 Atherosclerotic heart disease of native coronary artery without angina pectoris; J44.9 Chronic obstructive pulmonary disease, unspecified; E66.01 Morbid (severe) obesity due to excess calories; E78.00 Pure hypercholesterolemia, unspecified; E78.5 Hyperlipidemia, unspecified; I69.354 Hemiplegia and hemiparesis following cerebral infarction affecting left non-dominant side; I73.9 Peripheral vascular disease, unspecified; N76.1 Subacute and chronic vaginitis; Z68.44 Body mass index [BMI] 60.0-69.9, adult; Z79.84 Long term (current) use of oral hypoglycemic drugs; Z79.899 Other long term (current) drug therapy; Z87.891 Personal history of nicotine dependence; Z88.2 Allergy status to sulfonamides; Z99.89 Dependence on other enabling machines and devices
CPT/HCPCS: 71045; 72125; 80048; 80053; 82550; 82553; 82805; 82962 ×3; 83605; 83880; 84484 ×2; 85025 ×2; 93005; 93306; 93880; 93970; 94760; 96374; 96375; 96376; 97139 ×2; 97530 ×2; 99285; G0378 ×4; 36415; 36416; J1815; J2060; J2270; Q0162

== ENCOUNTER 2020-02-22 10:12 | Emergency (ER) | payer MEDICARE, OTHER ==
[2020-02-22] MEDS ORDERED: Ketorolac Tromethamine 30 MG/ML VIAL ONE (11:02)
== END 2020-02-22 11:26 | disposition home or self-care (01) ==
LOC: ERS 10:12
DX: M54.41 Lumbago with sciatica, right side (principal); I25.10 Atherosclerotic heart disease of native coronary artery without angina pectoris; E78.5 Hyperlipidemia, unspecified; E11.22 Type 2 diabetes mellitus with diabetic chronic kidney disease; E03.9 Hypothyroidism, unspecified; E78.00 Pure hypercholesterolemia, unspecified; E66.9 Obesity, unspecified; I13.0 Hypertensive heart and chronic kidney disease with heart failure and stage 1 through stage 4 chronic kidney disease, or unspecified chronic kidney disease; I50.9 Heart failure, unspecified; N18.3 Chronic kidney disease, stage 3 (moderate); J45.909 Unspecified asthma, uncomplicated; K76.0 Fatty (change of) liver, not elsewhere classified; Z87.891 Personal history of nicotine dependence; Z86.73 Personal history of transient ischemic attack (TIA), and cerebral infarction without residual deficits; Z79.899 Other long term (current) drug therapy
CPT/HCPCS: 96372; 99283; J1885

== ENCOUNTER 2020-03-04 12:11 | Outpatient (CLI) | payer MEDICARE, OTHER ==
--- NOTE | 2020-03-04 12:31 | RAD ---
TWO VIEWS LUMBAR SPINE: HISTORY: Sciatica. FINDINGS: Five lumbar-type vertebrae. Lumbar spine vertebral body height is maintained. No fracture. Mild loss of disc space height at L1-L2, L2-L3, L3-L4 and L4-L5. 1.1 cm of anterolisthesis of L4 upon L5. Extensive degenerative changes of posterior elements at L3-L4, L4-L5 and L5-S1. Necrosis of the aorta is noted. Limited evaluation the bony pelvis and sacrum. IMPRESSION: Multilevel degenerative changes of the lumbar spine. Grade 1 anterolisthesis of L4 upon L5 with assoc iated posterior element hypertrophy. Transcribed Date/Time: 03/04/2020 12:53 PM
--- NOTE | 2020-03-04 14:07 | CT ---
CT LUMBAR SPINE NONCONTRAST: HISTORY: Low back pain. FINDINGS: Vertebral body heights are maintained. No acute fracture or dislocation. T12-L1: Mild osteophytosis. Central canal and neural foramina are patent. L1-2: Minimal disc bulge. Circumferential degenerative changes. Mild stenosis of the central canal an d left neural foramen. Disc bulge and osteophytosis result in severe stenosis of the right neural foramen. L2-3: Central canal is patent. Osteophytosis of the facets. Moderate bilateral foraminal stenoses. L3-4: Disc space narrowing. Mild posterior disc bulge. Circumferential degenerative changes. Mild to moderate stenosis of the central canal. Moderate to severe stenosis of each neural foramen. L4-5: There is 0.5 cm spondylolisthesis. Diffuse posterior disc bulge and circumferential degenerativ e changes. Severe stenosis of the central canal. Small pocket of gas immediately superior to the apex of the disc bulge likely represents a small herniation, as there is also gas disc phenomenon at this level. The disc herniation effaces the right ventral aspect of the thecal sac and right L4 nerve root. Degenerative changes also result in severe right and moderate left foraminal stenoses. L5-S1: Osteophytosis. Thecal sac is patent. Severe stenosis of each neural foramen. Superiormost images partially demonstrate a soft tissue density smoothly marginated mass of the left adrenal gland measuring up to 3.3 cm x 3.2 cm greatest diameters. There is prominent calcification throughout the arterial structures with likely stenosis at the aorti c bifurcation. IMPRESSION : 1. Prominent multilevel degenerative changes throughout the lumbar spine as detailed above. Severe c entral canal and foraminal stenoses most prominent at the L4-5 level where there is also a disc herniation and superior extension that compresses the right L4 nerve root. Surgical consultation is l ikely warranted. 2. Partially visualized well-circumscribed large left adrenal mass. It does not demonstrate characte ristics of an adenoma based on this exam. Please consider dedicated CT abdomen/adrenal gland, without and with IV contrast, for better characterization. 3. Prominent atherosclerosis. Amarilys T. Transcribed Date/Time: 03/04/2020 2:22 PM
== END 2020-03-04 12:12 | disposition home or self-care (01) ==
LOC: BICCT 12:11
PROVIDERS: ATTEND Family Medicine
DX: M54.30 Sciatica, unspecified side (principal); M47.816 Spondylosis without myelopathy or radiculopathy, lumbar region; M48.061 Spinal stenosis, lumbar region without neurogenic claudication; E27.8 Other specified disorders of adrenal gland; M51.26 Other intervertebral disc displacement, lumbar region; I70.90 Unspecified atherosclerosis; M43.16 Spondylolisthesis, lumbar region
CPT/HCPCS: 72100; 72131

== ENCOUNTER 2020-05-22 08:17 | Outpatient (CLI) | payer MEDICARE, OTHER ==
--- NOTE | 2020-05-22 08:45 | RAD ---
Exam: Lumbar spine 2 views HISTORY: Lumbar radiculopathy. COMPARISON: 03/04/2020 FINDINGS: Upright flexion and extension views demonstrate 5 lumbar type vertebra. Lumbar spine verteb ral body height is obtained. No fracture. Moderate loss of disc space height and osteophyte formation at L4-L5. Atherosclerosis is noted. No spondylolysis. Spondylolisthesis: L4-L5: 1.1 cm in the neutral position 03/04/2020. Current exam: Neutral 1.2 mm of anterolisthesis; exte nsion 0.9 mm of anterolisthesis Flexion 1.3 mm of anterolisthesis IMPRESSION: Grade 1-2 anterolisthesis of L3 upon L4. No associated spondylolysis.
--- NOTE | 2020-05-22 09:27 | MRI ---
MRI LUMBAR SPINE NONCONTRAST: DATE: 05/22/2020 HISTORY: 64-year-old female with lumbar radiculopathy and lumbar spondylolisthesis COMPARISON: no prior lumbar spine MRIs FINDINGS: Poor dusakg-hy-cokbc ratio because of very large body habitus. There are 5 lumbar-type vertebrae. Vertebral body heights are maintained. Conus medullaris terminates at approximately L1-2. Other than L3-4 and L4-5, the rest of the disc spaces are maintained. There is an approximately 3.2 cm left adrenal mass. T12-L1:Essentially normal L1-2:Disc bulge encroaches upon bilateral neural foramina, causing moderate right, and mild to modera te left, neural foraminal stenosis. No central stenosis. L2-3:No central spinal canal stenosis. Moderate bilateral neural foraminal stenosis. L3-4:Mild disc space narrowing. Mild to moderate bilateral facet DJD causes minimal grade 1 anterolis thesis of L3 on L4. Disc bulge. Bilateral subarticular zone stenosis. Mild central spinal canal stenosis. Moderate bilateral neural foraminal stenosis, right greater than left, with chronic distort ion of exiting right L3 nerve root. L4-5:Severe bilateral facet DJD causes grade 1 anterolisthesis of L4 on L5. Diffuse disc bulge. Sever e central spinal canal stenosis with crowding of cauda equina and effacement of CSF signal. Severe subarticular zone stenosis bilaterally. Moderate to severe bilateral neural foraminal stenosis, with distortion of bilateral exiting L4 nerve roots. Moderate disc space narrowing. L5-S1:No central spinal canal stenosis. Subarticular zone stenosis bilaterally. Moderate-severe right neural foraminal stenosis and severe left neural foraminal stenosis, with distortion of bilateral exiting L5 nerve roots. Mild disc bulge. Moderate right facet DJD. Severe left facet DJD with facet j oint effusion. IMPRESSION: 1) a slightly greater than 3 cm left adrenal mass. Recommend further evaluation with dedicated CT of abdomen with and without contrast, adrenal protocol. 2) severe central spinal canal stenosis and bilateral high-grade neural foraminal stenosis at L4-5, d ue to grade 1 spondylolisthesis due to severe bilateral facet osteoarthrosis, plus diffuse disc bulge. 3) high-grade bilateral neural foraminal stenosis at L5-S1 with high-grade bilateral facet osteoarthr osis.
== END 2020-05-22 08:18 | disposition home or self-care (01) ==
LOC: TBSIIMAG 08:17
PROVIDERS: ATTEND Surgery
DX: M47.26 Other spondylosis with radiculopathy, lumbar region (principal); M43.16 Spondylolisthesis, lumbar region; E27.8 Other specified disorders of adrenal gland; M48.061 Spinal stenosis, lumbar region without neurogenic claudication; M51.16 Intervertebral disc disorders with radiculopathy, lumbar region; M48.07 Spinal stenosis, lumbosacral region
CPT/HCPCS: 72100; 72148

== ENCOUNTER 2020-09-14 08:25 | Outpatient (CLI) | payer MEDICARE, OTHER ==
--- NOTE | 2020-09-14 09:47 | ULT ---
EXAM: US Breast Limited Lt DATE: 09/14/2020 9:13 AM INDICATION: Left breast retroareolar mass seen on mammogram and palpated. COMPARISON: Diagnostic mammogram dated September 14, 2020. FINDING: There is a shadow irregular hypoechoic mass within the retroareolar left breast measuring 1 .2 cm suspicious for malignancy. No pathologically enlarged lymph nodes are evident within the left axilla. IMPRESSION: BI-RADS Category 4-suspicious abnormality. Suspicious irregular hypoechoic left breast retroareolar mass is present. This is palpated by the pat ient. Recommend ultrasound-guided core biopsy. Patient is currently receiving aspirin therapy. Recommend patient be off aspirin for 7 days prior to the ultrasound-guided core biopsy. Findings were discussed with Dr. Sanchez at 9:35 AM on September 14, 2020. Transcribed Date/Time: 09/14/2020 9:54 AM
--- NOTE | 2020-09-14 09:55 | MMO ---
Bilateral MAMMO Bilat Diag DDI+KT. CLINICAL HISTORY: Patient is 64 years old and is seen for diagnostic exam,palpable abnormality, nipple abnormality and pain in the left breast. The patient has the following family history of breast cancer: maternal aunt. The patient has no personal history of cancer. VIEWS: The views performed were: bilateral craniocaudal; bilateral craniocaudal with tomosynthesis; bilateral mediolateral oblique; bilateral mediolateral oblique with tomosynthesis; and bilateral mediolateral with tomosynthesis. FILMS COMPARED: The present examination has been compared to prior imaging studies performed at [facility] on 09/04/2015, 09/06/2016, 03/08/2018 and 09/14/2020. This study has been interpreted with the assistance of computer-aided detection. MAMMOGRAM FINDINGS: There are scattered fibroglandular densities. There is a new irregular mass measuring 11 millimeters with spiculated margins seen in the sub-areolar region of the left breast. In the right breast, there are no suspicious masses, calcifications or areas of architectural distortion. IMPRESSION: NEW MASS IN THE LEFT BREAST IS SUSPICIOUS. AN ULTRASOUND-GUIDED BREAST BIOPSY IS RECOMMENDED. PATIENT WILL NEED TO SUSPEND ASPIRIN THERAPY FOR [address] REYES AT THE OFFICE OF THE PATIENT'S REFERRING PHYSICIAN, DEBORAH REYES, WAS NOTIFIED OF THE EXAM RESULTS BY TELEPHONE ON 9:35 AM ON 09/14/2020. THE PATIENT WAS INFORMED OF THE EXAM RESULTS. THE RESULTS OF THIS EXAM WERE SENT TO THE PATIENT. ACR BI-RADS Category 4 - Suspicious abnormality - biopsy should be considered MAMMOGRAPHY NOTE: 1. A negative mammogram report should not delay a biopsy if a dominant of clinically suspicious mass is present. 2. Approximately 10% to 15% of breast cancers are not detected by mammography. 3. Adenosis and dense breasts may obscure an underlying neoplasm. Reported by: ARLINE HICKS MD Electonically Signed: [id number]
== END 2020-09-14 08:26 | disposition home or self-care (01) ==
LOC: BICMAMMO 08:25
PROVIDERS: ATTEND Family Medicine
DX: Z00.00 Encounter for general adult medical examination without abnormal findings (principal); N63.42 Unspecified lump in left breast, subareolar
CPT/HCPCS: 76642; 77066; G0279

== ENCOUNTER → 2020-09-28 | Day surgery (SDC) | payer MEDICARE, OTHER ==
--- NOTE | 2020-09-28 13:45 | MMO ---
FILMS COMPARED: The present examination has been compared to prior imaging studies performed at [facility] and the [facility] on 09/06/2016, 03/08/2018 and 09/14/2020. MAMMOGRAM FINDINGS: There are scattered fibroglandular densities. Biopsy marker noted in retroareolar region at site of mammgram mass. IMPRESSION: FINDING IN THE LEFT BREAST IS SUSPICIOUS. POST BIOPSY ACR BI-RADS Category 4 - Suspicious abnormality - PATH PENDING Reported by: MICHELLE FROST MD Electonically Signed: [id number]
--- NOTE | 2020-09-28 16:00 | ULT ---
PROCEDURE: 1. Ultrasound guided core biopsy mass left retroareolar region. 2. Ultrasound guided biopsy marker placement at biopsy site. 3. Post procedure mammogram left breast. INDICATION: Retroareolar mass left breast has been previously identified. The patient presents for ultrasound-gu ided core biopsy. FINDINGS: 1. Five 14-gauge core biopsy specimens were obtained through the mass in the left retroareolar regio n under ultrasound guidance. Pre- and post-fire images confirm biopsy through the mid portion of the mass with each sample. The specimens are placed in formalin. 2. Biopsy clip placed at biopsy site under ultrasound guidance. 3. Post procedure mammogram confirms biopsy marker at site of the mammogram mass in the left retroar eolar region. PROCEDURE NOTE: Left breast is prepped and draped in a sterile manner. Ultrasound again shows a hypoechoic spiculate d mass in the left retroareolar region. A small incision is made laterally. A 14-gauge biopsy instr ument is utilized. A guide needle was then placed. The instrument advanced under ultrasound guidanc e from a lateral approach. The tip of the needle is advanced to the leading edge of the mass. A pre -fire image is obtained. Post-fire image confirms biopsy through the mid portion of the mass. This is repeated x5. Five 14-gauge core specimens were obtained and placed in formalin. Biopsy marker was placed at the biopsy site under ultrasound guidance. The patient tolerated the procedure well and was sent for post procedure mammogram of the left breast . There were no problems or complications. POS: OFF
== END ==
LOC: BICULT 12:30
PROVIDERS: ATTEND Family Medicine
PROC: 0H9U3ZX Drainage of Left Breast, Percutaneous Approach, Diagnostic (ICD-10-PCS; principal; 2020-09-28)
DX: C50.112 Malignant neoplasm of central portion of left female breast (principal); Z88.2 Allergy status to sulfonamides
CPT/HCPCS: 19083; 88305; 88341; 88342

== ENCOUNTER 2020-10-28 11:39 | Outpatient (CLI) | payer MEDICARE, OTHER ==
--- NOTE | 2020-10-28 12:21 | RAD ---
Chest 2 views HISTORY: Cough. COMPARISON: 08/08/2019. FINDINGS: Cardiac silhouette is upper limits of normal in size. Pulmonary vasculature slightly engorg ed. Mediastinum is midline with aortic calcification. No lobar consolidation, pneumothorax, or pleural fl uid. IMPRESSION : Mild pulmonary vascular congestion with cardiomegaly. Correlate for CHF. Atherosclerosis.
--- NOTE | 2020-10-28 12:23 | RAD ---
Right knee 2 views HISTORY: Pain. FINDINGS: Mild tricompartmental osteophytosis. Mild joint space narrowing medial compartment. Small amount of fluid distends the suprapatellar bursa. Prominent calcification over the arterial structures. IMPRESSION : Mild osteoarthritic changes with small joint effusion. Atherosclerosis.
--- NOTE | 2020-10-28 12:23 | RAD ---
Left knee 2 views HISTORY: Left knee pain. FINDINGS: Moderate tricompartmental osteophytosis. Moderate joint space narrowing medial compartment with mild articular surface irregularity. No acute fracture, dislocation, or fluid distention of the joint capsule. Calcification overlies the arterial structures. IMPRESSION : Osteoarthritic changes with moderate joint space narrowing medial compartment.
== END 2020-10-28 11:40 | disposition home or self-care (01) ==
LOC: BICRAD 11:39
PROVIDERS: ATTEND Family Medicine
DX: M25.561 Pain in right knee (principal); M25.562 Pain in left knee; R05 Cough; M25.461 Effusion, right knee; I70.90 Unspecified atherosclerosis; I51.7 Cardiomegaly; R09.89 Other specified symptoms and signs involving the circulatory and respiratory systems; M17.0 Bilateral primary osteoarthritis of knee; M25.862 Other specified joint disorders, left knee
CPT/HCPCS: 71046

== ENCOUNTER 2020-10-30 16:34 | Inpatient (IN) | payer MEDICARE, OTHER ==
[~2020-10-30 16:34] MED LIST: PROPOFOL 200 MG/20 ML VIAL ONE; Rocuronium Bromide 10 MG/ML (10ML VIAL) ONE; Succinylcholine 200 MG/10 ml SYRINGE FS ONE
[2020-10-30 17:22] LABS: Hemoglobin 11.9 g/dL (12.0-16.0); Mean Corpuscular HGB CONC 31.2 g/dL (32.0-36.0); Mean Corpuscular Hemoglobin 28.2 pg (27.0-31.0); Mean Corpuscular Volume 90.4 fL (78.0-98.0); Mean Platelet Volume 9.6 fL (7.4-10.4); Platelet Count 201 thou/uL (130-400); RBC Distribution Width 14.1 % (11.5-14.5); Red Blood Cell (RBC) Count 4.22 mill/uL (4.20-5.40); White Blood Cell (WBC) Count 8.5 thou/uL (4.8-10.8)
[2020-10-30] MEDS ORDERED: Cefepime 2 GM VIAL ONE (17:36)
[2020-10-30] MEDS ORDERED: Acetaminophen 500 MG TAB ONE (17:36)
[2020-10-30] MEDS ORDERED: Vancomycin 1 GM/200 ML BAG ONE (17:36)
[2020-10-30 17:43] LABS: Band 38 % (5-11); Lymphocytes 8 % (21-51); MDiff Complete? YES; Monocytes 16 % (0-10); Neutrophil 34 % (42-75); Platelet Morphology Comment Appears Adequate; Polychromasia SLIGHT = 2-3 cells (100X) (0-2/hpf); Reactive Lymphocytes 4 % (0-10)
[2020-10-30 17:44] LABS: ALT (SGPT) 20 U/L (8-55); AST (SGOT) 42 U/L (5-34); Alkaline Phosphatase 66 U/L (40-110); Anion Gap 16 mmol/L (10-20); BUN (Urea Nitrogen) 16 mg/dL (9.8-20.1); Bilirubin, Total 0.8 mg/dL (0.2-1.2); CRP (Inflammatory) 16.03 mg/dL (= or < 0.5); Calc. Creatinine Clearance 0 mL/min (70-130); Calcium 7.9 mg/dL (7.8-10.44); Carbon Dioxide 22 mmol/L (23-31); Chloride 108 mmol/L (98-107); Globulin 3.3 g/dL (2.4-3.5); Glucose 126 mg/dL (80-115); Magnesium 1.7 mg/dL (1.6-2.6); Potassium 3.4 mmol/L (3.5-5.1); Protein, Total 6.3 g/dL (6.0-8.3); Sodium 143 mmol/L (136-145)
[2020-10-30] MEDS ORDERED: Morphine 4 MG/ML VIAL ONE (17:44)
--- NOTE | 2020-10-30 18:31 | CT ---
CT abdomen and pelvis noncontrast CT lumbar spine noncontrast HISTORY: Fall. Abdomen and back injury. Renal failure. FINDINGS: Mild peripheral atelectasis at the left posterolateral lung base. No significant pleural fl uid. Prominent calcification throughout the arterial structures with narrowing of the common iliac arterie s. The 3.0 cm left adrenal adenoma is stable. Solid organs of the abdomen are intact. No free air or free fluid. Fat protrudes into a small umbilic al hernia. No evidence of bowel obstruction or inflammation. Prominent degenerative changes throughout the lumbar spine. Vertebral body heights and alignment are maintained. Disc bulge, central canal stenosis, and foraminal stenoses, along with minimal degenerative spondylolisthesis most pronounced at the L4-5 level. No acute fracture or dislocation. IMPRESSION : No acute traumatic injury is demonstrated. Atherosclerosis. Prominent degenerative changes lower lumbar spine. Chronic-type findings are stable.
--- NOTE | 2020-10-30 18:34 | RAD ---
Chest one view HISTORY: Fall. Fever. COMPARISON: 10/28/2020. FINDINGS: Cardiac silhouette is magnified and enlarged. Coronary vasculature is upper limits of jaren l. The appearance of edema on this exam is not supported on images including the lung bases on corresponding CT abdomen. Mediastinum is midline with aortic calcification. No evidence of pneumothorax. IMPRESSION : Cardiomegaly. Atherosclerosis.
--- NOTE | 2020-10-30 18:40 | RAD ---
Right knee 4 views HISTORY: Fall. Injury. FINDINGS: Joint spaces are preserved. Mild tricompartmental osteophytosis. No acute fracture or dislocation are apparent. At the superiormost portion of the lateral view, there is suggestion of fluid distention of the supra patellar bursa, incompletely imaged. IMPRESSION : Probable joint fluid/effusion. Cause not evident. No acute osseous abnormalities are demonstrated.
[2020-10-30] MEDS ORDERED: Benzocaine 20% Spray 60 ML CAN ONE (20:31)
[2020-10-30] MEDS ORDERED: Ondansetron PF 4 MG/2 ML Vial IVP PRN (20:58)
[2020-10-30] MEDS ORDERED: Acetaminophen 650 MG Suppository PR PRN (20:58)
[2020-10-30] MEDS ORDERED: Ondansetron ODT 4 MG TAB PO PRN (20:58)
[2020-10-30] MEDS ORDERED: Calcium Carbonate 500 MG ChewTAB PO PRN (20:58)
[2020-10-30] MEDS ORDERED: HYDROcodone/Acetaminophen 5/325 mg Tablet PO PRN ×2 (20:58)
--- NOTE | 2020-10-30 21:04 | PDOC.HHP ---
Hospitalist HPI - History of Present Illness L knee pain History of Present Illness: Case of an 65y/o female with a pmhx of DM, chronic lymphedema, cad, chf, hx of cvas, ckd fatty liver, bronchial asthma hypothyroidism and hld presents to hospital complaining of knee pain. apparently patient was on her usual state of health until a few days ago when she started with cough chills general malaise and general weakness. patient states that since she has had 3 episodes of falling down on her knees due to feeling weak. she states she visited pcp who prescribed cefdinir for a possible airway infection. patient states she has been taking medication but continues to feel about the same and pain in her knees has become worse for which she decided to come to hospital for evaluation. At ED patient was evaluated and there were concerns for possible septic joint for which patient was tap, and hospitalist was called for admission. patient was evaluated by me and complained of worsening cough chills and was found to be febrile. also reports diarhea that started today. denies dysuria nausea vomiting Hospitalist ROS - Review of Systems All other systems reviewed; all pertinent +/- noted in HPI/Subj Hospitalist History - Past Medical History Pulmonary: reports: CVA/TIA/stroke - Past Surgical History Past Surgical History: reports: , Hysterectomy - Family History Family History: reports: no pertinent history - Social History Smoking Status: Former smoker Alcohol: reports: None Drugs: reports: none Living Situation: With Family - Exam General Appearance: NAD, awake alert Eye: PERRL, anicteric sclera ENT: normocephalic atraumatic, no oropharyngeal lesions Neck: supple, symmetric, no JVD Heart: RRR, no murmur, no gallops, no rubs Respiratory: CTAB, no wheezes, no rales Gastrointestinal: soft, non-tender, non-distended Extremities: no cyanosis, no clubbing, no edema Skin: normal turgor, no lesions, no rashes Neurological: cranial nerve grossly intact, normal sensation to touch Musculoskeletal: normal tone, normal strength, no muscle wasting Psychiatric: normal affect, normal behavior, A&O x 3 Hospitalist Results - Labs Result Diagrams: 10/30/20 17:11 10/30/20 17:11 Lab results: WBC 8.5 thou/uL (4.8-10.8) 10/30/20 17:11 Hgb 11.9 g/dL (12.0-16.0) L 10/30/20 17:11 Hct 38.1 % (36.0-47.0) 10/30/20 17:11 MCV 90.4 fL (78.0-98.0) 10/30/20 17:11 Plt Count 201 thou/uL (130-400) 10/30/20 17:11 Band Neuts % (Manual) 38 % (5-11) H 10/30/20 17:11 ESR Westergren 68 mm/hr (Less than 30) H 10/30/20 17:11 Sodium 143 mmol/L (136-145) 10/30/20 17:11 Potassium 3.4 mmol/L (3.5-5.1) L 10/30/20 17:11 Chloride 108 mmol/L (98-107) H 10/30/20 17:11 Carbon Dioxide 22 mmol/L (23-31) L 10/30/20 17:11 BUN 16 mg/dL (9.8-20.1) 10/30/20 17:11 Creatinine 2.16 mg/dL (0.6-1.1) H 10/30/20 17:11 Glucose 126 mg/dL (80-115) H 10/30/20 17:11 Lactic Acid 1.4 mmol/L (0.5-2.2) 10/30/20 17:11 Calcium 7.9 mg/dL (7.8-10.44) 10/30/20 17:11 Total Bilirubin 0.8 mg/dL (0.2-1.2) 10/30/20 17:11 AST 42 U/L (5-34) H 10/30/20 17:11 ALT 20 U/L (8-55) 10/30/20 17:11 Alkaline Phosphatase 66 U/L (40-110) 10/30/20 17:11 C-Reactive Protein 16.03 mg/dL (= or < 0.5) H 10/30/20 17:11 Serum Total Protein 6.3 g/dL (6.0-8.3) 10/30/20 17:11 Albumin 3.0 g/dL (3.4-4.8) L 01/01/21 17:11 Hospitalist H&P A/P - Problem (1) Septic joint Status: Acute (2) URTI (acute upper respiratory infection) Code(s): J06.9 - ACUTE UPPER RESPIRATORY INFECTION, UNSPECIFIED Status: Acute (3) Acute on chronic renal failure Code(s): N17.9 - ACUTE KIDNEY FAILURE, UNSPECIFIED; N18.9 - CHRONIC KIDNEY DISEASE, UNSPECIFIED Status: Acute (4) Hypertensive disorder, systemic arterial Code(s): I10 - ESSENTIAL (PRIMARY) HYPERTENSION Status: Active (5) Diabetes mellitus type 2 Code(s): E11.9 - TYPE 2 DIABETES MELLITUS WITHOUT COMPLICATIONS Status: Acute (6) Dyslipidemia Code(s): E78.5 - HYPERLIPIDEMIA, UNSPECIFIED Status: Acute (7) CAD (coronary artery disease) Code(s): I25.10 - ATHSCL HEART DISEASE OF [place] CORONARY ARTERY W/O ANG PCTRS Status: Chronic Qualifiers: (8) HTN (hypertension) Code(s): I10 - ESSENTIAL (PRIMARY) HYPERTENSION Status: Chronic Qualifiers: (9) Morbid obesity due to excess calories Code(s): E66.01 - MORBID (SEVERE) OBESITY DUE TO EXCESS CALORIES Status: Chronic (10) LIO (obstructive sleep apnea) Code(s): G47.33 - OBSTRUCTIVE SLEEP APNEA (ADULT) (PEDIATRIC) Status: Chronic - Plan Plan: Case of an 65y/o female with the stated pmhx who presents with urti and concerns for septic joint septic joint - s/p joint tap - f/u tap results - ID consult - on cefepime + back - f/u blood cultures - pain management - R knee xr showe effusion / fluid collection - to me this seems unlikely, none the less will treat until it is r/o urti - cxr w/o infiltrates effusions or consolidation - recently started of cefdinir a few days ago - should be covered with cefe + vanc - will test covid + flu acute on chronic renal fialure - creatinine higher than usual - will give ivfs - f/u renal function and u/o - avoid nephrotoxic medication DM acc+ss cotinue rest of home meds
--- NOTE | 2020-10-30 21:08 | RAD ---
Left knee 4 views HISTORY: Fall. Injury. FINDINGS: Mild joint space narrowing medial compartment. Tricompartmental osteophytosis. No acute fracture or dislocation. No fluid distention of the suprapatellar bursa. Calcification over the arterial structures. IMPRESSION : Mild osteoarthritic changes. No acute osseous abnormalities are demonstrated. Atherosclerosis.
[2020-10-30 21:56] LABS: RBC Count-Automated (BF) 1789 /cu.mm; WBC/Nucleated-Auto (BF) 227 uL
[2020-10-30 22:04] LABS: BF Color Yellow; Body Fluid Source Synovial Fluid; Clarity Hazy (Clear); Tube # EDTA
[2020-10-30 22:55] LABS: BF Segmented Neutrophils 6 %; Cell Count Non Hematic 69 %; Lymphocytes 25 %
[2020-10-30] MEDS ORDERED: Dextrose 5% in Water 1,000 ML IV PRN (23:21)
[2020-10-30] MEDS ORDERED: Dextrose 50% Abboject 50 ML SYRINGE SLOW IVP PRN (23:21)
[2020-10-30] MEDS ORDERED: HumaLOG 300 UNITS/3 ML VIAL SC PRN (23:21)
[2020-10-30 23:47] VITALS: BMI 61.4
[2020-10-31 00:55] LABS: SARS-CoV-2 MS2 Positive; SARS-CoV-2 N Gene Positive; SARS-CoV-2 S Gene Positive; SARS-CoV-2 by NAA DETECTED (NotDetected); SARS-CoV-2 orf1ab Positive
[2020-10-31] MEDS: Acetaminophen 325 MG TAB PO PRN (02:22)
[2020-10-31] MEDS: Cefepime 2 GM in Sodium Chloride 0.9% 100 ML IVPB SCH ×2 (05:26→15:48)
[2020-10-31] MEDS: Vancomycin HCl 1.75 GM in Sodium Chloride 0.9% 500 ML IVPB SCH (05:55)
[2020-10-31] MEDS: Levothyroxine Sodium 100 MCG TAB PO SCH (06:19)
[2020-10-31 06:47] LABS: ALT (SGPT) 24 U/L (8-55); AST (SGOT) 46 U/L (5-34); Albumin 2.7 g/dL (3.4-4.8); Alkaline Phosphatase 59 U/L (40-110); Anion Gap 15 mmol/L (10-20); BUN (Urea Nitrogen) 19 mg/dL (9.8-20.1); Bilirubin, Total 0.6 mg/dL (0.2-1.2); Calc. Creatinine Clearance 75 mL/min (70-130); Calcium 7.4 mg/dL (7.8-10.44); Carbon Dioxide 21 mmol/L (23-31); Chloride 111 mmol/L (98-107); Globulin 3.2 g/dL (2.4-3.5); Glucose 184 mg/dL (80-115); Potassium 3.6 mmol/L (3.5-5.1); Protein, Total 5.9 g/dL (6.0-8.3); Sodium 143 mmol/L (136-145)
[2020-10-31 08:02] LABS: Band 21 % (5-11); Eosinophils 1 % (0-10); Hemoglobin 11.2 g/dL (12.0-16.0); Lymphocytes 14 % (21-51); MDiff Complete? YES; Mean Corpuscular HGB CONC 30.9 g/dL (32.0-36.0); Mean Corpuscular Volume 90.5 fL (78.0-98.0); Mean Platelet Volume 9.6 fL (7.4-10.4); Monocytes 8 % (0-10); Neutrophil 56 % (42-75); Platelet Count 186 thou/uL (130-400); RBC Distribution Width 14.1 % (11.5-14.5); White Blood Cell (WBC) Count 7.6 thou/uL (4.8-10.8)
[2020-10-31] MEDS: Gabapentin 300 MG CAP PO SCH ×4 (08:18→19:58)
[2020-10-31] MEDS: Aspirin 325 MG TAB PO SCH ×2 (08:18→10:17)
[2020-10-31] MEDS: hydrALAZINE 25 MG TAB PO SCH ×4 (08:19→19:58)
[2020-10-31] MEDS: Ascorbic Acid 500 mg Chewable Tablet PO SCH ×2 (08:20→10:17)
[2020-10-31] MEDS: Amlodipine 10 MG TAB PO SCH ×2 (08:20→10:17)
[2020-10-31] MEDS: Allopurinol 100 MG TAB PO SCH ×2 (08:20→10:17)
[2020-10-31] MEDS: Carvedilol 25 MG TAB PO SCH ×3 (08:20→19:59)
[2020-10-31] MEDS: Zinc Sulfate 220 MG CAP PO SCH ×2 (08:21→10:18)
[2020-10-31] MEDS: Cholecalciferol (Vitamin D3) 400 UNITS TAB PO SCH ×2 (08:21→10:17)
[2020-10-31] MEDS: Enoxaparin Sodium 30 MG/0.3 ML SYRINGE SC SCH ×3 (08:23→19:57)
[2020-10-31] MEDS ORDERED: Furosemide 40 MG/4 ML VIAL ONE ×2 (08:50→10:07)
[2020-10-31] MEDS ORDERED: Lorazepam 2 MG/ML VIAL ONE (08:55)
[2020-10-31] MEDS ORDERED: Torsemide 20 MG TAB PO SCH (09:00)
[2020-10-31] MEDS ORDERED: Dexamethasone 4 mg/ml Vial SLOW IVP SCH (09:00)
[2020-10-31 09:05] LABS: Actual Bicarbonate (HCO3a) 22.7 mEq/L (22-28); Base Excess (BEa) -7.5 mEq/L (-2.0 to +3.0); Calcium, Ionized (arterial) 1.13 mmol/L (1.12-1.30); Carboxyhemoglobin (COHb) 0.5 gm% (0.0-3.0); Hemoglobin (Hb) 13.4 g/dL (12.0-16.0); Potassium - ABG Lab 3.91 mmol/L (3.70-5.30)
[2020-10-31] MEDS ORDERED: Lorazepam 2 MG/ML VIAL SLOW IVP PRN (09:10)
[2020-10-31] MEDS ORDERED: hydrALAZINE 20 MG/ML VIAL SLOW IVP PRN (09:11)
[2020-10-31] MEDS ORDERED: Furosemide 40 MG/4 ML VIAL SLOW IVP SCH (09:15)
--- NOTE | 2020-10-31 09:36 | RAD ---
Chest one view HISTORY: COVID. Respiratory failure. COMPARISON: 10/30/2020. FINDINGS: Cardiac silhouette is magnified and enlarged. Pulmonary vasculature now markedly engorged w ith widespread dense parenchymal infiltrate. Hemidiaphragms excluded from the image. No evidence of pneumothorax. IMPRESSION : Cardiomegaly with now severe pulmonary edema/ARDS.
[2020-10-31 10:07] LABS: ALV-art Gradient 570.275 mmHg (0-20); CO2 Tension 69.3 mmHg (35.0-45.0); O2 Tension (PaO2), arterial 56.1 mmHg (> 80.0); Puncture Site RBA; pH, Arterial 7.13 (7.35-7.45)
[2020-10-31] MEDS ORDERED: hydrALAZINE 20 MG/ML VIAL ONE (10:07)
[2020-10-31] MEDS ORDERED: Ventilator Sedation Protocol 1 EACH FS SCH (10:30)
[2020-10-31] MEDS ORDERED: Dextrose 5 %-0.45 % NaCl 1,000 ML IV SCH (10:30)
[2020-10-31] MEDS ORDERED: Propofol 1,000 MG/100 ML VIAL IV ONE ×2 (10:32→13:58)
[2020-10-31] MEDS ORDERED: Morphine 2 MG/ML VIAL SLOW IVP PRN (10:45)
[2020-10-31] MEDS ORDERED: Propofol BOLUS 1,000 MG/100 ML VIAL IV PRN (10:45)
[2020-10-31] MEDS ORDERED: Fentanyl BOLUS 250 ML IVPB PRN (10:45)
[2020-10-31] MEDS ORDERED: Sodium Chloride 0.9% 50 ML ONE (11:03)
--- NOTE | 2020-10-31 12:26 | CON ---
DATE OF CONSULTATION: HISTORY OF PRESENT ILLNESS: Jaki Johnston is a 65-year-old morbidly obese female, 168 kg, presented to the ER yesterday at 1637. Apparently, some kind of a fall, pain and injury to the knees. Recent URI. She went to a primary care physician, was placed apparently on some antibiotics for URI. Her sats are 96% on room air, pulse is 95, respiratory rate 20, blood pressure was 193/64, temperature 101.2. She underwent some aspiration of the left knee. Chest x-ray showed haziness and fat. This morning, she was on the medical floor when minnie ross was called in. Blood gases showed severe respiratory acidosis, pH 7.16. Anesthesia was called to intubate the patient. No additional information was obtained at this time. She was on BiPAP for a period of time. Obviously, unable to communicate with us. PAST MEDICAL HISTORY: From previous records, pertinent for morbid obesity, sleep apnea. Apparently, she has a CPAP machine that she is using. History of hypertension, chronic pain, previous CVA, morbid obesity, chronic asthma; renal failure, longstanding duration, chronic changes. PREVIOUS SURGERIES: , hysterectomy, left rotator cuff surgery. SOCIAL HISTORY: The patient did smoke at one time, none recently, quit smoking 10 years ago. MEDICATIONS: Her list of medicine from home includes: 1. Atorvastatin 80. 2. Coreg 25 b.i.d. 3. Gabapentin. 4. Imdur. 5. Synthroid 100. 6. Hydralazine 100. 7. Allopurinol 200. 8. Amlodipine 10. 9. Aspirin. 10. Insulin. 11. . 12. Glipizide. 13. . ALLERGIES: SULFA. REVIEW OF SYSTEMS: Unobtainable. PHYSICAL EXAMINATION: VITAL SIGNS: In the PAC unit, her sats were 92%, pulse 80, blood pressure 130/80, respiratory rate 18. Temperature this morning was 100.4. CHEST: Decreased breath sounds. No wheezing. CARDIAC: Normal S1, S2. No gallops. ABDOMEN: No masses. LABORATORY DATA: Labs show a creatinine which appears to be at a baseline 1.99, glucose 184. Liver function was normal. PO2 was 56, pCO2 was 69, pH 7.13, on a BiPAP 14/7, 100% FiO2. White count 7000 with 56 segs, 21 bands. IMPRESSION: 1. Respiratory failure, morbid obesity, combination of zeng positive pneumonia and sleep apnea. 2. Diabetes. 3. Renal failure. 4. Possibly septic joint fluid. This does look like infection. 5. Morbid obesity. 6. Hypertension. 7. Coronary artery disease. PLAN: She will be intubated going to try and get plasma. I am not so sure she can be put in a prone position because of morbid obesity. IV fluids, supportive care. DVT prophylaxis full dose. Prognosis is grave. We will discuss with family as they arrive. This is a 45-minute critical time. Job ID: [id number]
--- NOTE | 2020-10-31 12:37 | RAD ---
Chest one view HISTORY: Intubated. COMPARISON: Earlier exam on the same date. FINDINGS: Tip of the endotracheal catheter projects over the thoracic inlet. Nasogastric tube descend s to the abdomen. Dense widespread airspace disease and pulmonary vascular congestion are again demonstrated. IMPRESSION : Endotracheal catheter is in good radiographic position.
[2020-10-31] MEDS ORDERED: Dextrose 50% Abboject 50 ML SYRINGE SLOW IVP PRN (14:05)
[2020-10-31] MEDS ORDERED: Dextrose 5% in Water 1,000 ML IV PRN (14:05)
[2020-10-31] MEDS: fentaNYL Citrate/PF 2,000 MCG in Sodium Chloride 0.9% 60 ML IV SCH (14:26)
[2020-10-31] MEDS: Lorazepam 2 MG/ML VIAL SLOW IVP PRN (14:27)
[2020-10-31] MEDS: Sodium Chloride 0.9% 1,000 ML IV SCH (15:01)
[2020-10-31] MEDS: Propofol 1,000 MG/100 ML VIAL IV PRN ×3 (15:48→23:00)
[2020-10-31] MEDS: Insulin Regular 300 UNITS/3 ML VIAL SC PRN (16:34)
--- NOTE | 2020-10-31 17:00 | PDOC.HOSPP ---
- Subjective Subjective: Unfortunate 65 years old -[place] female who has significant past medical histories of diabetes, chronic lymphedema, CAD, congestive heart failure, history of CVA, CKD stage III followed by Dr. Garcia, fatty liver, asthma, hypothyroidism, presents with left knee pain. See was subsequently admitted for possible septic joint. She was status post arthrocentesis. Cultures pending. Her Covid came back positive but well. Patient was subsequently started on Decadron. I was called to patient bedside this morning, as he went into respiratory failure abruptly. Patient was initially placed on nonrebreather mask, however she continued to increase the work of breathing. Stat ABG showed patient hypercapnic with severe respiratory acidosis. She was subsequently placed on BiPAP, IV Lasix; however, she continued to deteriorate, did not responded well. She was ultimately intubated. I have discussed the case with project admin, Dr. Quezada will see in consultation. I also call family member today couple to get an update with regard to the patient's condition. - Objective Vital Signs & Weight: Vital Signs (12 hours) Temp Temp Pulse Pulse Pulse Resp Resp 10/31/20 15:45 89 10/31/20 15:24 10/31/20 14:46 89 10/31/20 11:23 95 10/31/20 10:18 108 H 10/31/20 10:17 108 H 10/31/20 09:54 108 H 10/31/20 08:50 101.7 F H 122 H 117 H 38 H 10/31/20 07:29 100.4 F H 101 H 24 H Resp BP BP BP Pulse Ox Pulse Ox Pulse Ox 10/31/20 15:45 149/57 H 10/31/20 15:24 100 10/31/20 14:46 149/57 H 10/31/20 11:23 107/68 10/31/20 10:18 10/31/20 10:17 10/31/20 09:54 10/31/20 08:50 38 H 209/92 H 73 L 93 L 10/31/20 07:29 197/73 H 93 L Weight Weight 369 lb 9.6 oz Most Recent Monitor Data Heart Rate from ECG 79 NIBP 138/62 NIBP BP-Mean 87 Respiration from ECG 22 SpO2 100 I&O: 10/30/20 10/31/20 11/01/20 06:59 06:59 06:59 Output Total 180 Balance -180 Result Diagrams: 10/31/20 06:05 10/31/20 06:05 Additional Labs: Accuchecks 10/31/20 10/31/20 10/31/20 16:13 12:09 03:25 POC Glucose 219 H 206 H 176 H 10/30/20 23:53 POC Glucose 148 H Hospitalist ROS - Medication Medications: Active Medications Generic Name Dose Route Start Last Admin Trade Name Freq PRN Reason Stop Dose Admin Acetaminophen 650 mg 10/30/20 20:58 10/31/20 02:22 Acetaminophen 325 Mg Tab PO 650 mg Q4H PRN Administration Headache/Fever/Mild Pain (1-3) Allopurinol 200 mg 10/31/20 09:00 10/31/20 10:17 Allopurinol 100 Mg Tab PO Not Given DAILY [facility] Amlodipine Besylate 10 mg 10/31/20 09:00 10/31/20 10:17 Amlodipine 10 Mg Tab PO Not Given DAILY [facility] Ascorbic Acid 1,000 mg 10/31/20 09:00 10/31/20 10:17 Ascorbic Acid 500 Mg Chewable Tablet PO Not Given DAILY [facility] Aspirin 325 mg 10/31/20 09:00 10/31/20 10:17 Aspirin 325 Mg Tab PO Not Given DAILY [facility] Carvedilol 25 mg 10/31/20 09:00 10/31/20 10:17 Carvedilol 25 Mg Tab PO Not Given BID [facility] Cholecalciferol 400 units 10/31/20 09:00 10/31/20 10:17 Cholecalciferol (Vitamin D3) 400 Units Tab PO Not Given DAILY [facility] Gabapentin 300 mg 10/31/20 09:00 10/31/20 15:45 Gabapentin 300 Mg Cap PO 300 mg TID RONY Administration Hydralazine HCl 100 mg 10/31/20 09:00 10/31/20 15:45 Hydralazine 25 Mg Tab PO Not Given TID RONY Cefepime HCl 2 gm/ Sodium 100 mls @ 200 mls/hr 10/31/20 05:00 10/31/20 15:48 Chloride IVPB 100 mls 0500,1700 RONY Administration Vancomycin HCl 1.75 gm/ Sodium 500 mls @ 250 mls/hr 10/31/20 06:00 10/31/20 05:55 Chloride IVPB 500 mls 0600 RONY Administration Fentanyl Citrate 2,000 mcg/ 100 mls @ 0 mls/hr 10/31/20 10:45 10/31/20 14:26 Sodium Chloride IV 11/30/20 10:45 100 mls INF RONY Administration Protocol Per Protocol Sodium Chloride 1,000 mls @ 50 mls/hr 10/31/20 14:15 10/31/20 15:01 Normal Saline 0.9% IV 1,000 mls .Q20H RONY Administration Insulin Human Regular 0 units 10/31/20 14:05 10/31/20 16:34 Insulin Regular 300 Units/3 Ml Vial SC 2 unit .MILD SLIDING SCALE PRN Administration Mild Correctional Scale Isosorbide Mononitrate 60 mg 10/31/20 09:00 10/31/20 15:44 Isosorbide Mononitrate Er 60 Mg Tab PO 60 mg TID RONY Administration Levothyroxine Sodium 100 mcg 10/31/20 06:00 10/31/20 06:19 Levothyroxine Sodium 100 Mcg Tab PO 100 mcg 0600 RONY Administration Lorazepam 2 mg 10/31/20 10:45 10/31/20 14:27 Lorazepam 2 Mg/Ml Vial SLOW IVP 11/30/20 10:45 2 mg Q1H PRN Administration Breakthrough agitation Propofol 1,000 mg 10/31/20 10:45 10/31/20 15:48 Propofol 1,000 Mg/100 Ml Vial IV 11/30/20 10:45 1,000 mg INF PRN Administration TO ACHIEVE GOAL RASS Protocol Zinc Sulfate 220 mg 10/31/20 09:00 10/31/20 10:18 Zinc Sulfate 220 Mg Cap PO Not Given DAILY RONY - Exam General - other findings: respiratory distress Eye: PERRL ENT: normocephalic atraumatic Neck: supple Heart: RRR Respiratory: CTAB Gastrointestinal: soft Extremities: no cyanosis Skin: normal turgor Hosp A/P - Plan The patient is an unfortunately 65 years old -[place] female with multiple comorbidities including diabetes, congestive heart failure, morbid obesity with BMI of 61.5, LIO, who was presented with knee pain, initially admitted for possible septic joint. She subsequently developed respiratory davie lure, now status post intubated. Acute hypoxic hypercapnic respiratory failure - probably combinations of COVID- 19 pneumonia and CHF exac --s/p intubation 10/31/2019 --start Plasma, cont Decadron, Vit C/D/Zinc, and empiric IV abx for below COVID-19 PNA --mgt as above. Not a candidate for Remdesivir d/t renal function CHF exac --check BNP --unknown type. Will obtain echo when stable. --cont IV Lasix Possible Septic Joint --follow cultures --cont IV abx with Zosyn/Vanc KALE/CKD --consult nephrology LIO --on CPAP at home DM --ISS for now Morbid obesity with BMI 61
[2020-10-31] MEDS: Mometasone 200 MCG/Formoterol 5 MCG 120 PUFF INHALER INH SCH (19:23)
[2020-10-31] MEDS: Dexamethasone 4 mg/ml Vial SLOW IVP SCH (19:57)
[2020-10-31] MEDS: Atorvastatin Calcium 40 MG TAB PO SCH (19:58)
--- NOTE | 2020-10-31 21:37 | OP ---
DATE OF PROCEDURE: 10/31/2020 PREOPERATIVE DIAGNOSES: Sepsis due to COVID, venous insufficiency. POSTOPERATIVE DIAGNOSES: Sepsis due to COVID, venous insufficiency. PROCEDURE PERFORMED: Right femoral central line placement. ANESTHESIA: Local. ESTIMATED BLOOD LOSS: Minimal. COMPLICATIONS: None. DESCRIPTION OF PROCEDURE: The right groin was shaved, prepped, and draped in a sterile fashion. Local anesthetic was infiltrated over the right femoral vein and femoral vein was cannulated using a Seldinger needle and a wire was passed under no tension. Andrae was made at the wire entrance site. Dilators were used to dilate the femoral vein. A triple-lumen catheter was threaded to its fullest extent and sewn to the skin using silk. All ports were flushed and drawn blood without difficulty. Sterile dressings were placed. Job ID: [id number]
--- NOTE | 2020-10-31 22:04 | CON ---
DATE OF CONSULTATION: REQUESTING PHYSICIAN: Dr. Lei with the hospitalist program. REASON FOR CONSULTATION: Acute kidney injury. IMPRESSION: 1. Acute kidney injury. This is likely cytokine mediated in the context of infection plus or minus potential COVID nephropathy. 2. Respiratory failure in the context of COVID nephropathy. 3. Mild metabolic acidosis. PLAN: 1. The patient is currently intubated. We will recommend renal supportive measures, whatever it would take to treat the COVID pneumonitis. 2. Renally dose all medications and avoid potentially nephrotoxic agents. 3. I do not see any need of placing this patient on IV fluids whatsoever. 4. Further management to be dependent on the clinical course. HISTORY OF PRESENT ILLNESS: History is that of a 65-year-old female patient, who presented status post fall, noted with knee pain and initially diagnosed with possible septic arthritis. However, patient respiratory solares seems to have deteriorated to the point of being intubated. The x-ray did reveal evidence of pulmonary congestion and possible worsening ARDS. The patient's creatinine noted to be elevated at 1.9. As a result, decision was taken to involve Renal in the management of this case. PAST MEDICAL HISTORY: Significant for TIA and CVA. MEDICATIONS: Reviewed as documented on [employer]. FAMILY HISTORY: Nonsignificantly related to present illness. SOCIAL HISTORY: Remote tobacco use. No alcohol. No illicit drug use. REVIEW OF SYSTEMS: Could not be obtained from this patient who is obviously intubated at this point. LABORATORY INVESTIGATIONS: Significant for bicarb of 21 with a creatinine of 1.99. CBC showed hemoglobin of 11.2. PHYSICAL EXAMINATION: GENERAL: The patient noted to be on life support, intubated with the following vital signs. VITAL SIGNS: Blood pressure 141/66, heart rate of 77, respiratory rate of 22, O2 saturation 100%. HEENT: Remarkable for endotracheal tube in place. CARDIOVASCULAR SYSTEM: First and second heart sounds were heard. RESPIRATORY SYSTEM: Revealed vented sounds. DIGESTIVE SYSTEM: Revealed obese abdomen. EXTREMITIES: No peripheral edema. SKIN EXAMINATION: No new gross rash. LYMPHATICS: No peripheral lymphadenopathy. SUMMARY: A 65-year-old female patient with COVID respiratory failure, now experiencing some acute kidney injury, likely multifactorial in etiology. Thank you for this consultation. We will follow with you. Job ID: [id number]
[2020-11-01] MEDS: Propofol 1,000 MG/100 ML VIAL IV PRN ×9 (01:54→22:39)
[2020-11-01] MEDS: Cefepime 2 GM in Sodium Chloride 0.9% 100 ML IVPB SCH ×2 (04:47→17:39)
[2020-11-01 05:00] LABS: Glucose 302 mg/dL (80-115)
[2020-11-01 05:04] LABS: #Lymphocytes 0.6 thou/uL (1.20-3.40); #Monocytes 0.4 thou/uL (0.11-0.59); #Neutrophils 4.4 thou/uL (1.40-6.50); %Basophils 0.2 % (0.0-1.0); %Lymphocytes 11.9 % (21.0-51.0); %Monocytes 6.5 % (0.0-10.0); %Neutrophils 81.4 % (42.0-75.0); Hemoglobin 10.4 g/dL (12.0-16.0); Mean Corpuscular HGB CONC 29.2 g/dL (32.0-36.0); Mean Corpuscular Hemoglobin 26.5 pg (27.0-31.0); Mean Platelet Volume 10.1 fL (7.4-10.4); Platelet Count 186 thou/uL (130-400); RBC Distribution Width 14.2 % (11.5-14.5); Red Blood Cell (RBC) Count 3.91 mill/uL (4.20-5.40); White Blood Cell (WBC) Count 5.4 thou/uL (4.8-10.8)
[2020-11-01 05:07] LABS: ALT (SGPT) 22 U/L (8-55); AST (SGOT) 43 U/L (5-34); Albumin 2.6 g/dL (3.4-4.8); Alkaline Phosphatase 51 U/L (40-110); Anion Gap 24 mmol/L (10-20); BUN (Urea Nitrogen) 30 mg/dL (9.8-20.1); Bilirubin, Total 0.5 mg/dL (0.2-1.2); Calc. Creatinine Clearance 46 mL/min (70-130); Calcium 7.6 mg/dL (7.8-10.44); Carbon Dioxide 12 mmol/L (23-31); Chloride 109 mmol/L (98-107); Globulin 3.3 g/dL (2.4-3.5); Glucose 294 mg/dL (80-115); Potassium 4.2 mmol/L (3.5-5.1); Protein, Total 5.9 g/dL (6.0-8.3); Sodium 141 mmol/L (136-145)
[2020-11-01] MEDS: Vancomycin HCl 1.75 GM in Sodium Chloride 0.9% 500 ML IVPB SCH (05:11)
[2020-11-01] MEDS: Levothyroxine Sodium 100 MCG TAB PO SCH (05:11)
--- NOTE | 2020-11-01 05:29 | CON ---
DATE OF CONSULTATION: 10/31/2020 REASON FOR CONSULTATION: Question regarding septic joint or the possibility of it. HISTORY OF PRESENT ILLNESS: A 65-year-old has a history of obesity, hypertension, type 2 diabetes, and coronary artery disease. This has been about three times since 2013 to [facility]. In July 2019, she was admitted to the Hospitalist Service and basically had a syncopal event, felt to be vasovagal reaction and one of the antihypertensives was discontinued. Then this time, she came in earlier today with history of falls onto knees, had some respiratory symptoms, seen by PCP on Monday and placed on cefdinir, but was not tested for COVID at that time, so the respiratory symptom onset was about four days before today's date. On arrival to the emergency room, she had some worsening cough and fever. Initial findings included BP 190/64, pulse 95, temperature 101.2, and O2 sats 96% on room air. O2 saturations were down to 94% on 2 L of oxygen at the last evaluation in the emergency room. Other findings included white cell count 8.5, hemoglobin 11.9, platelets 201, 38% bands, then 21% bands. She had a synovial fluid evaluated because of the knee pain and it showed 227 wbc's and 1789 rbc's, most likely traumatic effusion rather than infection. Pathologist review is pending at this point and the T-max before her transfer to the CCU was 102.9 and she was saturating 94% on 2 L nasal cannula in the floor. Today at 3 p.m., she coded and so she had to be intubated in the floor because of O2 sats less than 90% despite maximum O2 supplementation. The emely for O2 saturations was 73%, and the BiPAP was not successful, so she had to be intubated and now she is in C5 in the ICU. She is not in a prone position yet. BP 139/64. She is saturating 97% with FiO2 of 55. Orotracheal intubation. She is sedated. The pupils are midline, about 1 mm. Sclerae are white and she has a right groin triple-lumen catheter. Symmetric breath sounds. No obvious crackles or wheezing. S1 and S2. Diminished heart sounds. Abdomen, difficult exam due to pronounced panniculus and she has an indwelling Kim catheter. Could not do a neuro examination. PAST MEDICAL HISTORY: Obesity; coronary artery disease; type 2 diabetes; CHF; hypothyroidism; hyperlipidemia; hypertension; CVA; fatty liver; CKD, stage 2 to 3. PAST SURGICAL HISTORY: Includes , hysterectomy, and rotator cuff surgery. SOCIAL HISTORY: Former smoker, quit more than 10 years ago. FAMILY HISTORY: Noncontributory. ALLERGIES: SULFA DRUGS. CURRENT MEDICATIONS: 1. Norvasc. 2. Vitamin C. 3. Coreg. 4. Cefepime. 5. Decadron. 6. Fentanyl. 7. Insulin. 8. Levothyroxine. 9. Vancomycin. PHYSICAL EXAMINATION: VITAL SIGNS: T-max 102.9. Other vital signs as above. The exam has been noted above. GENERAL: Basically, she is intubated and has a triple-lumen in the right groin. LUNGS: The lung sounds are symmetric. No obvious crackles or wheezing. HEART: Diminished heart sounds. ABDOMEN: No guarding. No obvious abnormalities noted, but difficult exam. NEUROLOGIC: She is sedated right now, so we cannot do a neuro exam. EXTREMITIES: Pulses are 1+ in dorsalis pedis. Cool extremities. LABORATORY DATA: The latest labs; white cell count 7.6, hemoglobin 11.2, platelets 186, and 21% bands. IMAGING DATA: We have a chest x-ray from today at noon time, which showed ET tube and widespread airspace disease. The initial chest x-ray for this admission was on October 28 and it showed mild cardiomegaly but no obvious infiltrates, some congestion, but the one from today earlier obtained at 9 a.m. showed diffuse bilateral infiltrates. ASSESSMENT: 1. Coronary artery disease, obesity, type 2 diabetes, hypertension, history of congestive heart failure, and hypothyroidism. 2. Falls with injury to knees with arthrocentesis revealing traumatic findings but not infection. 3. Sudden decompensation of her respiratory status with rapid development of bilateral pulmonary infiltrates. The quality of the radiologist study is limited because of body habitus and the technique of the study involved. DISCUSSION: This is a quite precipitous deterioration, which occurred very quickly and is not very typical of SARS-CoV-2, although it can happen sometimes, but for the most part, they usually present with infiltrates and then it kind of progress over the course of at least two or three days, more often it is in more subacute progression, so the concern with an additional factor is brought up, particularly the possibility of cardiomyopathy with pulmonary edema. Thromboembolism would be less likely and superimposed infection is a concern because of bandemia and the patient has been covered with broad-spectrum, although in the next few days if she survives, then we will follow up blood cultures and probably discontinue antimicrobial therapy depending on the final results. Job ID: [id number] MTDD
[2020-11-01] MEDS: Insulin Regular 300 UNITS/3 ML VIAL SC PRN ×4 (05:32→21:45)
[2020-11-01] MEDS: Sodium Chloride 0.9% 1,000 ML IV SCH (05:36)
[2020-11-01 05:42] LABS: Burr Cells MODERATE= 6-15 cells (100X) (0-1/hpf)
[2020-11-01 07:33] LABS: Base Excess (BEa) -14.1 mEq/L (-2.0 to +3.0); CO2 Tension 34.5 mmHg (35.0-45.0); Calcium, Ionized (arterial) 1.13 mmol/L (1.12-1.30); Carboxyhemoglobin (COHb) 0.3 gm% (0.0-3.0); Hemoglobin (Hb) 12.3 g/dL (12.0-16.0); O2 Tension (PaO2), arterial 75.6 mmHg (> 80.0); Potassium - ABG Lab 4.34 mmol/L (3.70-5.30)
[2020-11-01] MEDS: Lorazepam 2 MG/ML VIAL SLOW IVP PRN (07:34)
[2020-11-01 07:36] LABS: ALV-art Gradient 273.425 mmHg (0-20); Puncture Site RRA; pH, Arterial 7.19 (7.35-7.45)
[2020-11-01] MEDS: Mometasone 200 MCG/Formoterol 5 MCG 120 PUFF INHALER INH SCH ×2 (07:38→19:04)
[2020-11-01] MEDS: hydrALAZINE 25 MG TAB PO SCH ×3 (09:16→19:56)
[2020-11-01] MEDS: Ascorbic Acid 500 mg Chewable Tablet PO SCH (09:16)
[2020-11-01] MEDS: Allopurinol 100 MG TAB PO SCH (09:16)
[2020-11-01] MEDS: Zinc Sulfate 220 MG CAP PO SCH (09:17)
[2020-11-01] MEDS: Cholecalciferol (Vitamin D3) 400 UNITS TAB PO SCH (09:17)
[2020-11-01] MEDS: Carvedilol 25 MG TAB PO SCH ×2 (09:17→19:58)
[2020-11-01] MEDS: Amlodipine 10 MG TAB PO SCH (09:17)
[2020-11-01] MEDS: Gabapentin 300 MG CAP PO SCH ×3 (09:17→19:56)
[2020-11-01] MEDS: Dexamethasone 4 mg/ml Vial SLOW IVP SCH ×2 (09:18→19:57)
[2020-11-01] MEDS: Enoxaparin Sodium 30 MG/0.3 ML SYRINGE SC SCH ×2 (09:18→19:55)
[2020-11-01] MEDS: Aspirin 325 MG TAB PO SCH (09:18)
--- NOTE | 2020-11-01 09:42 | RAD ---
Chest one view HISTORY: COVID pneumonia. Follow-up. COMPARISON: 10/31/2020. FINDINGS: Cardiac silhouette remains enlarged and predominantly obscured by diffuse, dense airspace d isease similar in appearance to the prior study. Mediastinum is midline. Lines and tubes unchanged in position. No evidence of pneumothorax. IMPRESSION : Diffuse dense infiltrate and other findings are stable.
[2020-11-01] MEDS ORDERED: Sodium Bicarb 50 MEQ/50 ML Abboject 8.4% SYRINGE IVP SCH (10:00)
[2020-11-01] MEDS ORDERED: Sodium Chloride 0.45% 1,000 ML IV SCH (10:00)
[2020-11-01] MEDS ORDERED: Insulin Glargine 10 UNITS in Pre-Filled Syringe 1 EACH SC SCH (10:15)
--- NOTE | 2020-11-01 10:31 | PRG ---
DATE OF SERVICE: 11/01/2020 SUBJECTIVE: A 65-year-old morbidly obese female who is intubated with respiratory failure. OBJECTIVE: VITAL SIGNS: Temperature 98, pulse 68, blood pressure 130/62, respiratory rate 18, sats 95%. I's and O's have been positive. CHEST: No wheezing. No crackles. CARDIAC: Normal S1, S2. No gallops. LABORATORY DATA: White count 5000, H and H 10 and 33, platelet count is normal. Renal function; creatinine is 3, BUN is 30, GFR is 17. BNP is 114. C-reactive protein is 26. X-ray shows haziness, bilateral infiltrates. Liver function is normal. ASSESSMENT: 1. Respiratory failure, morbid obesity, sleep apnea. 2. Boswell-positive pneumonia. 3. Renal failure. PLAN: She is on steroids, IV fluids being changed over to half-normal with 2 amps of bicarb. She is not weanable at this stage, is to continue otherwise supportive care, PT, steroids. One-half hour of critical care time. Job ID: [id number]
[2020-11-01] MEDS: Sodium Bicarbonate 100 MEQ in Sodium Chloride 0.45% 1,000 ML IV SCH (12:07)
[2020-11-01] MEDS: fentaNYL Citrate/PF 2,000 MCG in Sodium Chloride 0.9% 60 ML IV SCH (12:07)
[2020-11-01 13:07] LABS: Glucose 311 mg/dL (80-115)
--- NOTE | 2020-11-01 17:51 | PDOC.HOSPP ---
- Subjective Subjective: Pt was seen and examined at bedside. pt remains intubated. Cr worsened. output is marginal - Objective Vital Signs & Weight: Vital Signs (12 hours) Temp Pulse Resp BP Pulse Ox 11/01/20 16:00 97.2 F L 22 H 11/01/20 14:52 63 141/68 H 11/01/20 14:22 63 11/01/20 14:00 22 H 11/01/20 12:00 98.3 F 22 H 11/01/20 11:15 53 L 11/01/20 10:00 22 H 11/01/20 09:17 68 130/62 11/01/20 09:16 67 130/62 11/01/20 08:00 98.2 F 22 H 96 11/01/20 07:37 82 11/01/20 06:00 22 H Weight Weight 369 lb 9.6 oz Most Recent Monitor Data Heart Rate from ECG 67 NIBP 145/56 NIBP BP-Mean 85 Respiration from ECG 22 SpO2 100 I&O: 10/31/20 11/01/20 11/02/20 06:59 06:59 06:59 Intake Total 1434.8 772 Output Total 420 115 Balance 1014.8 657 Result Diagrams: 11/01/20 04:10 11/01/20 12:20 Additional Labs: Accuchecks 11/01/20 11/01/20 14:55 09:30 POC Glucose 276 H 284 H Radiology Reviewed by me: Yes EKG Reviewed by me: Yes Hospitalist ROS - Medication Medications: Active Medications Generic Name Dose Route Start Last Admin Trade Name Freq PRN Reason Stop Dose Admin Acetaminophen 650 mg 10/30/20 20:58 10/31/20 02:22 Acetaminophen 325 Mg Tab PO 650 mg Q4H PRN Administration Headache/Fever/Mild Pain (1-3) Allopurinol 200 mg 10/31/20 09:00 11/01/20 09:16 Allopurinol 100 Mg Tab PO 200 mg DAILY RONY Administration Amlodipine Besylate 10 mg 10/31/20 09:00 11/01/20 09:17 Amlodipine 10 Mg Tab PO 10 mg DAILY RONY Administration Ascorbic Acid 1,000 mg 10/31/20 09:00 11/01/20 09:16 Ascorbic Acid 500 Mg Chewable Tablet PO 1,000 mg DAILY RONY Administration Aspirin 325 mg 10/31/20 09:00 11/01/20 09:18 Aspirin 325 Mg Tab PO 325 mg DAILY RONY Administration Atorvastatin Calcium 80 mg 10/31/20 21:00 10/31/20 19:58 Atorvastatin Calcium 40 Mg Tab PO 80 mg HS RONY Administration Carvedilol 25 mg 10/31/20 09:00 11/01/20 09:17 Carvedilol 25 Mg Tab PO 25 mg BID RONY Administration Cholecalciferol 400 units 10/31/20 09:00 11/01/20 09:17 Cholecalciferol (Vitamin D3) 400 Units Tab PO 400 units DAILY RONY Administration Dexamethasone 6 mg 10/31/20 21:00 11/01/20 09:18 Dexamethasone 4 Mg/Ml Vial SLOW IVP 6 mg BID RONY Administration Enoxaparin Sodium 30 mg 10/31/20 21:00 11/01/20 09:18 Enoxaparin Sodium 30 Mg/0.3 Ml Syringe SC 30 mg BID RONY Administration Gabapentin 300 mg 10/31/20 09:00 11/01/20 14:51 Gabapentin 300 Mg Cap PO 300 mg TID RONY Administration Hydralazine HCl 100 mg 10/31/20 09:00 11/01/20 14:52 Hydralazine 25 Mg Tab PO 100 mg TID RONY Administration Cefepime HCl 2 gm/ Sodium 100 mls @ 200 mls/hr 10/31/20 05:00 11/01/20 17:39 Chloride IVPB 100 mls 0500,1700 RONY Administration Vancomycin HCl 1.75 gm/ Sodium 500 mls @ 250 mls/hr 10/31/20 06:00 11/01/20 05:11 Chloride IVPB 500 mls 0600 RONY Administration Fentanyl Citrate 2,000 mcg/ 100 mls @ 0 mls/hr 10/31/20 10:45 11/01/20 12:07 Sodium Chloride IV 11/30/20 10:45 100 mls INF RONY Administration Protocol Per Protocol Sodium Bicarbonate 100 meq/ 1,100 mls @ 50 mls/hr 11/01/20 11:45 11/01/20 12:07 Sodium Chloride IV 1,100 mls .Q22H RONY Administration Insulin Human Regular 0 units 10/31/20 14:05 11/01/20 16:09 Insulin Regular 300 Units/3 Ml Vial SC 4 unit .MILD SLIDING SCALE PRN Administration Mild Correctional Scale Isosorbide Mononitrate 60 mg 10/31/20 09:00 11/01/20 14:52 Isosorbide Mononitrate Er 60 Mg Tab PO 60 mg TID RONY Administration Levothyroxine Sodium 100 mcg 10/31/20 06:00 11/01/20 05:11 Levothyroxine Sodium 100 Mcg Tab PO 100 mcg 0600 RONY Administration Lorazepam 2 mg 10/31/20 10:45 11/01/20 07:34 Lorazepam 2 Mg/Ml Vial SLOW IVP 11/30/20 10:45 2 mg Q1H PRN Administration Breakthrough agitation Mometasone Furoate/Formoterol Fumar 2 puff 10/31/20 18:30 11/01/20 07:38 Mometasone 200 Mcg/Formoterol 5 Mcg 120 Puff Inhaler INH 2 puff BID-RT RONY Administration Propofol 1,000 mg 10/31/20 10:45 11/01/20 17:39 Propofol 1,000 Mg/100 Ml Vial IV 11/30/20 10:45 1,000 mg INF PRN Administration TO ACHIEVE GOAL RASS Protocol Zinc Sulfate 220 mg 10/31/20 09:00 11/01/20 09:17 Zinc Sulfate 220 Mg Cap PO 220 mg DAILY RONY Administration - Exam General - other findings: intubated. Eye: PERRL ENT: normocephalic atraumatic Neck: supple, symmetric Heart: RRR Respiratory: CTAB, no wheezes Gastrointestinal: soft, non-tender Extremities: no cyanosis Skin: normal turgor Musculoskeletal: normal tone Psychiatric: normal affect, normal behavior, A&O x 3 Hosp A/P - Plan The patient is an unfortunately 65 years old -[place]ian female with multiple comorbidities including diabetes, congestive heart failure, morbid obesity with BMI of 61.5, LIO, who was presented with knee pain, initially admitted for possible septic joint. She subsequently developed respiratory failure, now status post intubated. Acute hypoxic hypercapnic respiratory failure - probably combinations of COVID- 19 pneumonia and CHF exac --s/p intubation 10/31/2019 --s/p convalescent Plasma, cont Decadron, Vit C/D/Zinc, and empiric IV abx for below --appreciate pul/ID input COVID-19 PNA --mgt as above. Not a candidate for Remdesivir d/t renal function CHF exac --check BNP --unknown type. Will obtain echo when stable. --cont IV Lasix Possible Septic Joint --follow cultures - so far no growth --cont IV abx with Zosyn/Vanc KALE/CKD --Nephrology is following, appreciate input LIO --on CPAP at home DM --ISS for now Morbid obesity with BMI 61
[2020-11-01] MEDS: Atorvastatin Calcium 40 MG TAB PO SCH (19:57)
[2020-11-02] MEDS: hydrALAZINE 20 MG/ML VIAL SLOW IVP PRN ×2 (00:26→05:52)
[2020-11-02] MEDS: Propofol 1,000 MG/100 ML VIAL IV PRN ×10 (00:27→21:45)
[2020-11-02] MEDS: Insulin Regular 300 UNITS/3 ML VIAL SC PRN ×4 (03:49→21:52)
[2020-11-02] MEDS: Cefepime 2 GM in Sodium Chloride 0.9% 100 ML IVPB SCH (04:01)
[2020-11-02] MEDS: Lorazepam 2 MG/ML VIAL SLOW IVP PRN ×9 (04:10→21:45)
[2020-11-02] MEDS: Levothyroxine Sodium 100 MCG TAB PO SCH (04:56)
[2020-11-02] MEDS: Vancomycin HCl 1.75 GM in Sodium Chloride 0.9% 500 ML IVPB SCH (05:01)
[2020-11-02 05:07] LABS: ALT (SGPT) 21 U/L (8-55); AST (SGOT) 49 U/L (5-34); Albumin 2.5 g/dL (3.4-4.8); Alkaline Phosphatase 47 U/L (40-110); Anion Gap 23 mmol/L (10-20); BUN (Urea Nitrogen) 42 mg/dL (9.8-20.1); Bilirubin, Total 0.4 mg/dL (0.2-1.2); CRP (Inflammatory) 20.91 mg/dL (= or < 0.5); Calc. Creatinine Clearance 39 mL/min (70-130); Calcium 7.5 mg/dL (7.8-10.44); Carbon Dioxide 19 mmol/L (23-31); Chloride 106 mmol/L (98-107); Globulin 3.5 g/dL (2.4-3.5); Glucose 337 mg/dL (80-115); Sodium 144 mmol/L (136-145)
[2020-11-02 06:07] LABS: Band 44 % (5-11); Hemoglobin 10.6 g/dL (12.0-16.0); Lymphocytes 2 % (21-51); MDiff Complete? YES; Mean Corpuscular HGB CONC 31.3 g/dL (32.0-36.0); Mean Corpuscular Hemoglobin 27.9 pg (27.0-31.0); Mean Corpuscular Volume 89.1 fL (78.0-98.0); Mean Platelet Volume 10.8 fL (7.4-10.4); Monocytes 1 % (0-10); Neutrophil 53 % (42-75); Platelet Count 185 thou/uL (130-400); RBC Distribution Width 14.2 % (11.5-14.5); Red Blood Cell (RBC) Count 3.78 mill/uL (4.20-5.40); White Blood Cell (WBC) Count 13.9 thou/uL (4.8-10.8)
[2020-11-02] MEDS ORDERED: Vecuronium 10 MG VIAL ONE (06:19)
[2020-11-02] MEDS: fentaNYL Citrate/PF 2,000 MCG in Sodium Chloride 0.9% 60 ML IV SCH ×2 (06:20→19:29)
[2020-11-02] MEDS: Vecuronium 10 MG VIAL IV SCH ×2 (06:44→08:52)
[2020-11-02 06:49] LABS: Vancomycin, Trough 29.9 ug/mL
[2020-11-02] MEDS: Acetaminophen 325 MG TAB PO PRN ×2 (07:28→15:03)
[2020-11-02] MEDS: Mometasone 200 MCG/Formoterol 5 MCG 120 PUFF INHALER INH SCH ×2 (08:36→18:32)
[2020-11-02 08:38] LABS: Actual Bicarbonate (HCO3a) 21.7 mEq/L (22-28); CO2 Tension 47.3 mmHg (35.0-45.0); Calcium, Ionized (arterial) 1.06 mmol/L (1.12-1.30); Carboxyhemoglobin (COHb) 0.3 gm% (0.0-3.0); Hemoglobin (Hb) 11.6 g/dL (12.0-16.0); Potassium - ABG Lab 3.83 mmol/L (3.70-5.30); pH, Arterial 7.28 (7.35-7.45)
[2020-11-02 08:41] LABS: ALV-art Gradient 249.675 mmHg (0-20); O2 Tension (PaO2), arterial 47.7 mmHg (> 80.0); Puncture Site RRA
[2020-11-02] MEDS: Enoxaparin Sodium 30 MG/0.3 ML SYRINGE SC SCH ×2 (08:47→21:44)
[2020-11-02] MEDS: hydrALAZINE 25 MG TAB PO SCH ×3 (08:50→21:44)
[2020-11-02] MEDS: Amlodipine 10 MG TAB PO SCH (08:50)
[2020-11-02] MEDS: Carvedilol 25 MG TAB PO SCH ×2 (08:51→21:43)
[2020-11-02] MEDS: Dexamethasone 4 mg/ml Vial SLOW IVP SCH ×2 (08:52→21:43)
[2020-11-02] MEDS: Ascorbic Acid 500 mg Chewable Tablet PO SCH (08:52)
[2020-11-02] MEDS: Aspirin 325 MG TAB PO SCH ×2 (08:53→09:22)
[2020-11-02] MEDS: Zinc Sulfate 220 MG CAP PO SCH (08:53)
[2020-11-02] MEDS: Allopurinol 100 MG TAB PO SCH (08:53)
[2020-11-02] MEDS: Gabapentin 300 MG CAP PO SCH (08:53)
[2020-11-02] MEDS: Cholecalciferol (Vitamin D3) 400 UNITS TAB PO SCH (08:53)
[2020-11-02] MEDS: Insulin Glargine 10 UNITS in Pre-Filled Syringe 1 EACH SC SCH (08:54)
--- NOTE | 2020-11-02 09:01 | RAD ---
PORTABLE CHEST: HISTORY: COVID pneumonia followup. COMPARISON: 11/01/2020 study. FINDINGS: Heart size is enlarged. Endotracheal and NG tubes are in satisfactory position. Diffuse bilateral l katie infiltrates are felt to be similar to the previous exam given differences in technique. IMPRESSION: Extensive bilateral infiltrates stable. POS: OFF
--- NOTE | 2020-11-02 09:32 | PRG ---
DATE OF SERVICE: 11/02/2020 SUBJECTIVE: Morbidly obese female who is having problem with oxygenation all night. OBJECTIVE: VITAL SIGNS: Pulse is 100, temperature 101.5, blood pressure 160/60, saturations were decreased. She is now on 60% with a PEEP of 12, bilevel, tidal volume is about 400 mL. CHEST: Decreased breath sounds. No wheezing. CARDIAC: Normal S1, S2. ABDOMEN: No masses. Massive. LABORATORY DATA: White count 13,000, hemoglobin and hematocrit 10 and 30, platelet count is normal. PO2 was 47, pCO2 of , pH 7.28, rate of 22, 50%, and PEEP of 12. Creatinine 3.8. IMAGING DATA: X-ray shows diffuse infiltrates. ASSESSMENT: Respiratory failure, renal failure, morbid obesity, sleep apnea, zeng positive status. She is unfortunately not weanable as she is too big to be prone. I am going to give her a bag of convalescent plasma. Otherwise, continue supportive care, high-dose steroids, empiric antibiotics. Prognosis is grave. One-half hour of critical care time. Job ID: [id number]
[2020-11-02] MEDS: Sodium Bicarbonate 100 MEQ in Sodium Chloride 0.45% 1,000 ML IV SCH (10:00)
[2020-11-02] MEDS: Isosorbide Dinitrate 20 MG TAB PER TUBE SCH ×3 (11:02→21:44)
[2020-11-02] MEDS: Vecuronium 10 MG VIAL IV PRN ×6 (11:02→21:45)
--- NOTE | 2020-11-02 17:44 | PDOC.HOSPP ---
- Subjective Subjective: remains intubated not weanable per pulmonology. updated her daughter, Imelda and sister on 3-way calling. - Objective Vital Signs & Weight: Vital Signs (12 hours) Temp Pulse Resp BP Pulse Ox 11/02/20 16:00 22 H 11/02/20 15:17 72 138/65 11/02/20 15:00 98.2 F 73 136/59 L 11/02/20 14:00 22 H 11/02/20 12:39 73 136/59 L 11/02/20 12:00 22 H 11/02/20 11:35 73 155/65 H 11/02/20 11:00 99.8 F H 11/02/20 10:00 22 H 11/02/20 09:00 100.3 F H 11/02/20 08:50 78 164/64 H 11/02/20 08:14 78 164/64 H 11/02/20 08:00 22 H 93 L 11/02/20 07:28 101 F H 11/02/20 07:00 101.0 F H 11/02/20 06:00 99.4 F 48 H 11/02/20 05:52 84 188/68 H Weight Admit Weight 369 lb Weight 369 lb 9.6 oz Most Recent Monitor Data Heart Rate from ECG 70 NIBP 140/65 NIBP BP-Mean 90 Respiration from ECG 22 SpO2 95 I&O: 11/01/20 11/02/20 11/03/20 06:59 06:59 06:59 Intake Total 1434.8 2967 100 Output Total 420 1430 360 Balance 1014.8 1537 -260 Result Diagrams: 11/02/20 01:14 11/02/20 03:30 Additional Labs: Accuchecks 11/02/20 11/02/20 11/01/20 09:01 03:49 21:36 POC Glucose 328 H 313 H 273 H Radiology Reviewed by me: Yes EKG Reviewed by me: Yes Hospitalist ROS - Medication Medications: Active Medications Generic Name Dose Route Start Last Admin Trade Name Freq PRN Reason Stop Dose Admin Acetaminophen 650 mg 10/30/20 20:58 11/02/20 15:03 Acetaminophen 325 Mg Tab PO 650 mg Q4H PRN Administration Headache/Fever/Mild Pain (1-3) Amlodipine Besylate 10 mg 10/31/20 09:00 11/02/20 08:50 Amlodipine 10 Mg Tab PO 10 mg DAILY RONY Administration Ascorbic Acid 1,000 mg 10/31/20 09:00 11/02/20 08:52 Ascorbic Acid 500 Mg Chewable Tablet PO 1,000 mg DAILY RONY Administration Aspirin 325 mg 10/31/20 09:00 11/02/20 09:22 Aspirin 325 Mg Tab PO 325 mg DAILY RONY Administration Atorvastatin Calcium 80 mg 10/31/20 21:00 11/01/20 19:57 Atorvastatin Calcium 40 Mg Tab PO 80 mg HS RONY Administration Carvedilol 25 mg 10/31/20 09:00 11/02/20 08:51 Carvedilol 25 Mg Tab PO 25 mg BID RONY Administration Cholecalciferol 400 units 10/31/20 09:00 11/02/20 08:53 Cholecalciferol (Vitamin D3) 400 Units Tab PO 400 units DAILY RONY Administration Dexamethasone 6 mg 10/31/20 21:00 11/02/20 08:52 Dexamethasone 4 Mg/Ml Vial SLOW IVP 6 mg BID RONY Administration Enoxaparin Sodium 30 mg 10/31/20 21:00 11/02/20 08:47 Enoxaparin Sodium 30 Mg/0.3 Ml Syringe SC 30 mg BID RONY Administration Hydralazine HCl 100 mg 10/31/20 09:00 11/02/20 15:00 Hydralazine 25 Mg Tab PO 100 mg TID RONY Administration Hydralazine HCl 10 mg 10/31/20 14:03 11/02/20 05:52 Hydralazine 20 Mg/Ml Vial SLOW IVP 10 mg Q4H PRN Administration Persistent BP Elevations Fentanyl Citrate 2,000 mcg/ 100 mls @ 0 mls/hr 10/31/20 10:45 11/02/20 06:20 Sodium Chloride IV 11/30/20 10:45 100 mls INF RONY Administration Protocol Per Protocol Insulin Glargine 10 units/ 0.1 mls @ 0 mls/hr 11/02/20 09:00 11/02/20 08:54 Miscellaneous Medication SC 0.1 mls QAM RONY Administration Sodium Bicarbonate 100 meq/ 1,100 mls @ 50 mls/hr 11/01/20 11:45 11/02/20 10:00 Sodium Chloride IV 1,100 mls .Q22H RONY Administration Insulin Human Regular 0 units 10/31/20 14:05 11/02/20 15:30 Insulin Regular 300 Units/3 Ml Vial SC 6 unit .MILD SLIDING SCALE PRN Administration Mild Correctional Scale Isosorbide Dinitrate 60 mg 11/02/20 09:00 11/02/20 15:00 Isosorbide Dinitrate 20 Mg Tab PER TUBE 60 mg TID RONY Administration Levothyroxine Sodium 100 mcg 10/31/20 06:00 11/02/20 04:56 Levothyroxine Sodium 100 Mcg Tab PO 100 mcg 0600 RONY Administration Lorazepam 2 mg 10/31/20 10:45 11/02/20 17:08 Lorazepam 2 Mg/Ml Vial SLOW IVP 11/30/20 10:45 2 mg Q1H PRN Administration Breakthrough agitation Mometasone Furoate/Formoterol Fumar 2 puff 10/31/20 18:30 11/02/20 08:36 Mometasone 200 Mcg/Formoterol 5 Mcg 120 Puff Inhaler INH 2 puff BID-RT RONY Administration Propofol 1,000 mg 10/31/20 10:45 11/02/20 17:08 Propofol 1,000 Mg/100 Ml Vial IV 11/30/20 10:45 1,000 mg INF PRN Administration TO ACHIEVE GOAL RASS Protocol Vecuronium [place] 10 mg 11/02/20 09:02 11/02/20 17:09 Vecuronium 10 Mg Vial IV 10 mg Q1H PRN Administration Muscle Spasm Zinc Sulfate 220 mg 10/31/20 09:00 11/02/20 08:53 Zinc Sulfate 220 Mg Cap PO 220 mg DAILY RONY Administration - Exam General - other findings: intubated and sedated Eye: PERRL ENT: normocephalic atraumatic Neck: supple Heart: RRR, no murmur Respiratory: CTAB, no wheezes Gastrointestinal: soft, non-tender Extremities: no cyanosis Skin: normal turgor Neurological - other findings: intubated and sedated Hosp A/P - Plan The patient is an unfortunately 65 years old -Chinese female with multiple comorbidities including diabetes, congestive heart failure, morbid obesity with BMI of 61.5, LIO, who was presented with knee pain, initially admitted for possible septic joint. She subsequently developed respiratory failure, now status post intubated. Acute hypoxic hypercapnic respiratory failure - probably combinations of COVID- 19 pneumonia and CHF exac --s/p intubation 10/31/2019 --s/p convalescent Plasma, cont Decadron, Vit C/D/Zinc, and empiric IV abx for below --appreciate pul/ID input COVID-19 PNA --mgt as above. Not a candidate for Remdesivir d/t renal function CHF exac --BNP minimally elevated. CXR more suggestive of COVID rather than pul edema --unknown type. Will obtain echo when stable. --Lasix discontinued. Possible Septic Joint --follow cultures - so far no growth --cont IV abx with Zosyn/Vanc KALE/CKD --Nephrology is following, appreciate input LIO --on CPAP at home DM --ISS for now Morbid obesity with BMI 61
--- NOTE | 2020-11-02 19:37 | PRG ---
DATE OF SERVICE: 11/02/2020 OBJECTIVE: VITAL SIGNS: Patient noted with the following vital signs; blood pressure 145/64, heart rate of 73, respiratory rate of 22, on ventilator. HEENT: Remarkable for endotracheal tube in place. CARDIOVASCULAR SYSTEM: First and second heart sounds were heard. RESPIRATORY SYSTEM: Revealed vented sounds. DIGESTIVE SYSTEM: Revealed an obese abdomen. EXTREMITIES: No peripheral edema. SKIN: No new gross rash. LYMPHATICS: No peripheral lymphadenopathy. LABORATORY INVESTIGATION: Showed a white count of 10,900 with hemoglobin of 10.6. Chemistry showed a creatinine gone up to 3.85 with BUN of 42, and bicarb of 19. IMPRESSION: 1. Acute kidney injury. 2. Respiratory failure. 3. Coronavirus disease pneumonitis. 4. Morbid obesity. PLAN: 1. From all indication, the patient's renal function seems to be getting worse and this patient is tending towards oliguria and anuria. We will continue to monitor the renal function. No emergent indication at this point for renal replacement therapy; however, the patient continues this trend. The patient likely is going to be needing this modality of treatment. 2. Renally dose all medications and avoid potentially nephrotoxic agents. 3. Further management to be dependent on the clinical course. Job ID: [id number]
[2020-11-02] MEDS ORDERED: Sterile Water 10 ML ONE ×2 (21:38→21:39)
[2020-11-02] MEDS: Atorvastatin Calcium 40 MG TAB PO SCH (21:43)
[2020-11-03] MEDS: Propofol 1,000 MG/100 ML VIAL IV PRN ×10 (00:07→22:10)
[2020-11-03] MEDS: Vecuronium 10 MG VIAL IV PRN ×4 (02:46→17:33)
[2020-11-03] MEDS: Lorazepam 2 MG/ML VIAL SLOW IVP PRN ×4 (02:46→17:34)
[2020-11-03 04:24] LABS: ALT (SGPT) 22 U/L (8-55); AST (SGOT) 41 U/L (5-34); Albumin 2.5 g/dL (3.4-4.8); Alkaline Phosphatase 45 U/L (40-110); Anion Gap 19 mmol/L (10-20); BUN (Urea Nitrogen) 48 mg/dL (9.8-20.1); Bilirubin, Total 0.5 mg/dL (0.2-1.2); Calc. Creatinine Clearance 40 mL/min (70-130); Calcium 7.6 mg/dL (7.8-10.44); Carbon Dioxide 21 mmol/L (23-31); Chloride 104 mmol/L (98-107); Globulin 3.5 g/dL (2.4-3.5); Glucose 468 mg/dL (80-115); Potassium 3.8 mmol/L (3.5-5.1); Sodium 140 mmol/L (136-145)
[2020-11-03 04:37] LABS: CRP (Inflammatory) 30.86 mg/dL (= or < 0.5)
[2020-11-03] MEDS: Cefepime 1 GM in Sodium Chloride 0.9% 100 ML IVPB SCH (05:12)
[2020-11-03] MEDS: Levothyroxine Sodium 100 MCG TAB PO SCH (05:13)
[2020-11-03 05:14] LABS: Hemoglobin 10.3 g/dL (12.0-16.0); MDiff Complete? YES; Mean Corpuscular HGB CONC 31.1 g/dL (32.0-36.0); Mean Corpuscular Hemoglobin 27.3 pg (27.0-31.0); Mean Corpuscular Volume 87.9 fL (78.0-98.0); Mean Platelet Volume 10.9 fL (7.4-10.4); Platelet Count 179 thou/uL (130-400); RBC Distribution Width 14.2 % (11.5-14.5); Red Blood Cell (RBC) Count 3.77 mill/uL (4.20-5.40); White Blood Cell (WBC) Count 14.9 thou/uL (4.8-10.8)
[2020-11-03 05:15] LABS: Band 20 % (5-11); Lymphocytes 3 % (21-51); Monocytes 2 % (0-10); Neutrophil 75 % (42-75)
[2020-11-03] MEDS: Carvedilol 25 MG TAB PO SCH ×2 (07:03→19:47)
[2020-11-03] MEDS: Mometasone 200 MCG/Formoterol 5 MCG 120 PUFF INHALER INH SCH ×2 (07:30→18:54)
[2020-11-03] MEDS: Sodium Bicarbonate 100 MEQ in Sodium Chloride 0.45% 1,000 ML IV SCH (07:43)
[2020-11-03] MEDS: Aspirin 325 MG TAB PO SCH (07:44)
[2020-11-03] MEDS: Enoxaparin Sodium 30 MG/0.3 ML SYRINGE SC SCH ×2 (07:44→19:45)
[2020-11-03] MEDS: Ascorbic Acid 500 mg Chewable Tablet PO SCH (07:44)
[2020-11-03] MEDS: Dexamethasone 4 mg/ml Vial SLOW IVP SCH ×2 (07:46→19:45)
[2020-11-03 07:47] LABS: Actual Bicarbonate (HCO3a) 19.8 mEq/L (22-28); Base Excess (BEa) -3.8 mEq/L (-2.0 to +3.0); CO2 Tension 30.2 mmHg (35.0-45.0); Calcium, Ionized (arterial) 1.03 mmol/L (1.12-1.30); Carboxyhemoglobin (COHb) 0.4 gm% (0.0-3.0); Hemoglobin (Hb) 8.6 g/dL (12.0-16.0); Potassium - ABG Lab 3.65 mmol/L (3.70-5.30); pH, Arterial 7.43 (7.35-7.45)
[2020-11-03] MEDS: hydrALAZINE 25 MG TAB PO SCH ×3 (07:47→19:46)
[2020-11-03] MEDS: Amlodipine 10 MG TAB PO SCH (07:47)
[2020-11-03] MEDS: Gabapentin 100 MG CAP PO SCH (07:47)
[2020-11-03] MEDS: fentaNYL Citrate/PF 2,000 MCG in Sodium Chloride 0.9% 60 ML IV SCH ×2 (07:48→17:02)
[2020-11-03 07:49] LABS: O2 Tension (PaO2), arterial 59.5 mmHg (> 80.0)
[2020-11-03 07:51] LABS: Puncture Site RRA
--- NOTE | 2020-11-03 07:58 | RAD ---
Chest one view HISTORY: Pneumonia. Follow-up. COMPARISON: 11/02/2020. FINDINGS: Cardiac silhouette is magnified, enlarged, and partially obscured by dense widespread paren chymal infiltrate that is similar in appearance to the prior study. Pulmonary vasculature remains engorged. Mediastinum is midline. Lines and tubes unchanged in position. Calcification of the aorta. No pneumothorax. IMPRESSION : Widespread infiltrates/ARDS and other findings are stable.
[2020-11-03] MEDS: Cholecalciferol (Vitamin D3) 400 UNITS TAB PO SCH (08:10)
[2020-11-03] MEDS: Isosorbide Dinitrate 20 MG TAB PER TUBE SCH ×3 (08:15→19:47)
[2020-11-03] MEDS: Zinc Sulfate 220 MG CAP PO SCH (09:37)
[2020-11-03] MEDS ORDERED: Sterile Water 10 ML ONE (09:54)
[2020-11-03] MEDS: Insulin Glargine 10 UNITS in Pre-Filled Syringe 1 EACH SC SCH (09:57)
[2020-11-03] MEDS: Insulin Regular 300 UNITS/3 ML VIAL SC PRN ×4 (09:57→22:47)
[2020-11-03] MEDS ORDERED: Insulin Glargine 10 UNITS in Pre-Filled Syringe 1 EACH SC SCH (10:45)
--- NOTE | 2020-11-03 12:19 | PRG ---
DATE OF SERVICE: 11/03/2020 SUBJECTIVE: A 65-year-old morbidly obese female, remains intubated in the vent. OBJECTIVE: VITAL SIGNS: Temperature is 95, blood pressure 130/97, respiratory rate 18, . CHEST: No wheezing, no crackles. CARDIAC: Normal S1 and S2. No gallops. ABDOMEN: No masses. LABORATORY DATA: White count 14,000, H and H 10 and 33, platelets 179, big left shift. PO2 of 59, pCO2 of 30.2, pH 7.43 on present vent settings. Creatinine is 3, BUN 48. X-ray shows extensive bilateral infiltrates. ASSESSMENT AND PLAN: Boswell positive pneumonia, respiratory failure, diabetes, renal failure, morbid obesity, sleep apnea, not weanable. Continue high-dose steroids and antibiotics. Supportive care. Prognosis is guarded. She is too big to be put in the prone position. One-half hour of critical care time. Job ID: [id number]
--- NOTE | 2020-11-03 18:31 | PDOC.HOSPP ---
- Subjective Subjective: CXR appears worsened. BG exacerbated by steroid. Vent setting went up. Prognosis quite poor. Appreciate Palliative care team input - Objective Vital Signs & Weight: Vital Signs (12 hours) Temp Pulse Resp BP Pulse Ox 11/03/20 17:58 22 H 11/03/20 16:15 66 123/56 L 11/03/20 16:00 98.9 F 22 H 11/03/20 14:23 66 140/67 11/03/20 14:00 22 H 11/03/20 12:27 96.8 F L 11/03/20 12:00 96.6 F L 22 H 11/03/20 11:12 60 140/69 11/03/20 10:00 22 H 11/03/20 09:00 94.9 F L 11/03/20 08:00 22 H 94 L 11/03/20 07:47 59 L 139/97 H 11/03/20 07:31 59 L 139/97 H 11/03/20 07:00 96.1 F L Weight Admit Weight 369 lb Weight 369 lb 9.6 oz Most Recent Monitor Data Heart Rate from ECG 65 NIBP 125/61 NIBP BP-Mean 82 Respiration from ECG 22 SpO2 91 I&O: 11/02/20 11/03/20 11/04/20 06:59 06:59 06:59 Intake Total 2967 2659.4 1640 Output Total 1430 1320 1140 Balance 1537 1339.4 500 Result Diagrams: 11/03/20 03:35 11/03/20 03:35 Additional Labs: Accuchecks 11/03/20 11/02/20 11/02/20 10:04 21:50 15:05 POC Glucose 438 H 395 H 357 H Hospitalist ROS - Medication Medications: Active Medications Generic Name Dose Route Start Last Admin Trade Name Freq PRN Reason Stop Dose Admin Acetaminophen 650 mg 10/30/20 20:58 11/02/20 15:03 Acetaminophen 325 Mg Tab PO 650 mg Q4H PRN Administration Headache/Fever/Mild Pain (1-3) Amlodipine Besylate 10 mg 10/31/20 09:00 11/03/20 07:47 Amlodipine 10 Mg Tab PO 10 mg DAILY RONY Administration Ascorbic Acid 1,000 mg 10/31/20 09:00 11/03/20 07:44 Ascorbic Acid 500 Mg Chewable Tablet PO 1,000 mg DAILY RONY Administration Aspirin 325 mg 10/31/20 09:00 11/03/20 07:44 Aspirin 325 Mg Tab PO 325 mg DAILY RONY Administration Atorvastatin Calcium 80 mg 10/31/20 21:00 11/02/20 21:43 Atorvastatin Calcium 40 Mg Tab PO 80 mg HS RONY Administration Carvedilol 25 mg 10/31/20 09:00 11/03/20 07:03 Carvedilol 25 Mg Tab PO Not Given BID RONY Cholecalciferol 400 units 10/31/20 09:00 11/03/20 08:10 Cholecalciferol (Vitamin D3) 400 Units Tab PO 400 units DAILY RONY Administration Dexamethasone 6 mg 10/31/20 21:00 11/03/20 07:46 Dexamethasone 4 Mg/Ml Vial SLOW IVP 6 mg BID RONY Administration Enoxaparin Sodium 30 mg 10/31/20 21:00 11/03/20 07:44 Enoxaparin Sodium 30 Mg/0.3 Ml Syringe SC 30 mg BID RONY Administration Gabapentin 100 mg 11/03/20 09:00 11/03/20 07:47 Gabapentin 100 Mg Cap PO 100 mg DAILY RONY Administration Hydralazine HCl 100 mg 10/31/20 09:00 11/03/20 16:15 Hydralazine 25 Mg Tab PO Not Given TID RONY Hydralazine HCl 10 mg 10/31/20 14:03 11/02/20 05:52 Hydralazine 20 Mg/Ml Vial SLOW IVP 10 mg Q4H PRN Administration Persistent BP Elevations Fentanyl Citrate 2,000 mcg/ 100 mls @ 0 mls/hr 10/31/20 10:45 11/03/20 17:02 Sodium Chloride IV 11/30/20 10:45 100 mls INF RONY Administration Protocol Per Protocol Sodium Bicarbonate 100 meq/ 1,100 mls @ 50 mls/hr 11/01/20 11:45 11/03/20 07:43 Sodium Chloride IV 1,100 mls .Q22H RONY Administration Cefepime HCl 1 gm/ Sodium 100 mls @ 200 mls/hr 11/03/20 05:00 11/03/20 05:12 Chloride IVPB 100 mls 0500 RONY Administration Doxycycline Hyclate 100 mg/ 100 mls @ 100 mls/hr 11/03/20 11:00 11/03/20 11:51 Sodium Chloride IVPB 11/13/20 23:01 100 mls 1100,2300 RONY Administration Insulin Human Regular 0 units 11/03/20 10:45 11/03/20 15:15 Insulin Regular 300 Units/3 Ml Vial SC 6 unit .AGGRESSIVE SLIDING PRN Administration AGGRESSIVE SLIDING SCALE Protocol Isosorbide Dinitrate 60 mg 11/02/20 09:00 11/03/20 15:20 Isosorbide Dinitrate 20 Mg Tab PER TUBE 60 mg TID RONY Administration Levothyroxine Sodium 100 mcg 10/31/20 06:00 11/03/20 05:13 Levothyroxine Sodium 100 Mcg Tab PO 100 mcg 0600 RONY Administration Lorazepam 2 mg 10/31/20 10:45 11/03/20 17:34 Lorazepam 2 Mg/Ml Vial SLOW IVP 11/30/20 10:45 2 mg Q1H PRN Administration Breakthrough agitation Mometasone Furoate/Formoterol Fumar 2 puff 10/31/20 18:30 11/03/20 07:30 Mometasone 200 Mcg/Formoterol 5 Mcg 120 Puff Inhaler INH 2 puff BID-RT RONY Administration Propofol 1,000 mg 10/31/20 10:45 11/03/20 17:33 Propofol 1,000 Mg/100 Ml Vial IV 11/30/20 10:45 1,000 mg INF PRN Administration TO ACHIEVE GOAL RASS Protocol Vecuronium [place] 10 mg 11/02/20 09:02 11/03/20 17:33 Vecuronium 10 Mg Vial IV 10 mg Q1H PRN Administration Muscle Spasm Zinc Sulfate 220 mg 10/31/20 09:00 11/03/20 09:37 Zinc Sulfate 220 Mg Cap PO Not Given DAILY RONY - Exam General - other findings: intubated Eye: PERRL ENT: normocephalic atraumatic Neck: supple Heart: RRR, no murmur Respiratory: rhonchi Gastrointestinal: soft, non-tender Extremities: no cyanosis Skin: normal turgor Skin - other findings: intubated Hosp A/P - Plan The patient is an unfortunately 65 years old -[place] female with multiple comorbidities including diabetes, congestive heart failure, morbid obesity with BMI of 61.5, LIO, who was presented with knee pain, initially admitted for possible septic joint. She subsequently developed respiratory failure, now status post intubated. Acute hypoxic hypercapnic respiratory failure - probably combinations of COVID- 19 pneumonia and CHF exac --s/p intubation 10/31/2019 --s/p convalescent Plasma, cont Decadron, Vit C/D/Zinc, and empiric IV abx for below --appreciate pul/ID input --poor prognosis. Unable to prone d/t body habitus COVID-19 PNA --mgt as above. Not a candidate for Remdesivir d/t renal function CHF exac --BNP minimally elevated. CXR more suggestive of COVID rather than pul edema --unknown type. Will obtain echo when stable. --Lasix discontinued. Possible Septic Joint --follow cultures - so far no growth --cont IV abx with Zosyn/Vanc KALE/CKD --Nephrology is following, appreciate input LIO --on CPAP at home DM --BG exacerbated. Lantus adjusted. Cont ISS Morbid obesity with BMI 61
[2020-11-03] MEDS: Famotidine/PF 20 mg/2ml Vial SLOW IVP SCH (19:46)
[2020-11-03] MEDS: Atorvastatin Calcium 40 MG TAB PO SCH (19:47)
[2020-11-03] MEDS: Insulin Glargine 20 UNITS in Pre-Filled Syringe 1 EACH SC SCH (22:46)
[2020-11-04] MEDS: Propofol 1,000 MG/100 ML VIAL IV PRN ×10 (00:19→23:06)
[2020-11-04] MEDS: Cefepime 1 GM in Sodium Chloride 0.9% 100 ML IVPB SCH (04:21)
[2020-11-04 05:17] LABS: ALT (SGPT) 24 U/L (8-55); AST (SGOT) 58 U/L (5-34); Albumin 2.4 g/dL (3.4-4.8); Alkaline Phosphatase 47 U/L (40-110); Anion Gap 17 mmol/L (10-20); BUN (Urea Nitrogen) 52 mg/dL (9.8-20.1); Bilirubin, Total 0.4 mg/dL (0.2-1.2); CRP (Inflammatory) 28.93 mg/dL (= or < 0.5); Calc. Creatinine Clearance 43 mL/min (70-130); Calcium 7.4 mg/dL (7.8-10.44); Carbon Dioxide 25 mmol/L (23-31); Chloride 104 mmol/L (98-107); Globulin 3.5 g/dL (2.4-3.5); Glucose 446 mg/dL (80-115); Potassium 4.2 mmol/L (3.5-5.1); Protein, Total 5.9 g/dL (6.0-8.3); Sodium 142 mmol/L (136-145)
[2020-11-04] MEDS: fentaNYL Citrate/PF 2,000 MCG in Sodium Chloride 0.9% 60 ML IV SCH ×2 (06:16→18:03)
[2020-11-04] MEDS: Sodium Bicarbonate 100 MEQ in Sodium Chloride 0.45% 1,000 ML IV SCH (06:17)
--- NOTE | 2020-11-04 06:20 | PRG ---
DATE OF SERVICE: 11/03/2020 SUBJECTIVE: The patient , seems to be improving renal solares, noted with the following vital signs. OBJECTIVE: VITAL SIGNS: Blood pressure 125/61, HEENT: Remarkable for endotracheal tube in place. CARDIOVASCULAR SYSTEM: First and second heart sounds were heard. RESPIRATORY SYSTEM: Revealed vented sounds. DIGESTIVE SYSTEM: Revealed an obese abdomen. EXTREMITIES: No peripheral edema. LABORATORY INVESTIGATION: Showed a hemoglobin of 10.3. Chemistry showed a creatinine slightly down to 3.72, BUN of 48. IMPRESSION: 1. Acute on chronic kidney disease with slight improvement, nonoliguric. 2. COVID pneumonitis. 3. Respiratory failure. 4. Mild metabolic acidosis. PLAN: 1. We will continue with current renal supportive measures. 2. No emergent indication at this point for renal replacement therapy. The patient seems to be turning around a little bit renal solares. 3. Further management to be dependent on the clinical course. Job ID: [id number]
[2020-11-04 06:32] LABS: Band 25 % (5-11); Hemoglobin 10.1 g/dL (12.0-16.0); Lymphocytes 2 % (21-51); MDiff Complete? YES; Mean Corpuscular HGB CONC 31.5 g/dL (32.0-36.0); Mean Corpuscular Hemoglobin 28.2 pg (27.0-31.0); Mean Corpuscular Volume 89.6 fL (78.0-98.0); Mean Platelet Volume 10.9 fL (7.4-10.4); Monocytes 1 % (0-10); Neutrophil 72 % (42-75); Platelet Count 202 thou/uL (130-400); RBC Distribution Width 14.3 % (11.5-14.5); Red Blood Cell (RBC) Count 3.58 mill/uL (4.20-5.40); White Blood Cell (WBC) Count 15.1 thou/uL (4.8-10.8)
[2020-11-04] MEDS: Levothyroxine Sodium 100 MCG TAB PO SCH (06:48)
[2020-11-04] MEDS: Insulin Regular 300 UNITS/3 ML VIAL SC PRN ×3 (07:23→20:51)
[2020-11-04] MEDS: Mometasone 200 MCG/Formoterol 5 MCG 120 PUFF INHALER INH SCH ×2 (07:25→18:32)
[2020-11-04] MEDS: Lorazepam 2 MG/ML VIAL SLOW IVP PRN ×2 (07:28→20:03)
[2020-11-04] MEDS: Vecuronium 10 MG VIAL IV PRN ×5 (07:28→23:49)
[2020-11-04 07:46] LABS: Actual Bicarbonate (HCO3a) 23.6 mEq/L (22-28); Base Excess (BEa) -4.4 mEq/L (-2.0 to +3.0); CO2 Tension 55.9 mmHg (35.0-45.0); Calcium, Ionized (arterial) 1.09 mmol/L (1.12-1.30); Carboxyhemoglobin (COHb) 0.4 gm% (0.0-3.0); Hemoglobin (Hb) 13.4 g/dL (12.0-16.0); Potassium - ABG Lab 4.16 mmol/L (3.70-5.30)
[2020-11-04] MEDS: Isosorbide Dinitrate 20 MG TAB PER TUBE SCH ×3 (09:02→20:04)
[2020-11-04] MEDS: Aspirin 325 MG TAB PO SCH (09:03)
[2020-11-04] MEDS: Zinc Sulfate 220 MG CAP PO SCH (09:03)
[2020-11-04] MEDS: Ascorbic Acid 500 mg Chewable Tablet PO SCH (09:03)
[2020-11-04] MEDS: Amlodipine 10 MG TAB PO SCH (09:04)
[2020-11-04] MEDS: hydrALAZINE 25 MG TAB PO SCH ×3 (09:04→20:04)
[2020-11-04] MEDS: Carvedilol 25 MG TAB PO SCH ×2 (09:04→20:04)
[2020-11-04] MEDS: Cholecalciferol (Vitamin D3) 400 UNITS TAB PO SCH (09:04)
--- NOTE | 2020-11-04 09:04 | PRG ---
DATE OF SERVICE: 11/04/2020 SUBJECTIVE: Jaki Johnston is a 65-year-old morbidly obese female, remains intubated in the vent. X-ray shows persistent diffuse pulmonary infiltrates severe hypoxemia but on the monitor 100%. She is saturating 94. OBJECTIVE: VITAL SIGNS: Respiratory rate 22. Blood pressure 130/65. CHEST: Decreased breath sounds. No wheezing. CARDIAC: Normal S1, S2. masses. LABORATORY DATA: White count 52164, creatinine 3, BUN 52. ASSESSMENT: Respiratory failure, zeng positive pneumonia, morbid obesity, renal failure. PLAN: She is clearly not weanable at this stage. Continue supportive care. Antibiotics, steroids, some kind of infected knee, but cultures so far negative. Nothing suspect Staph at this stage. One-half hour of critical care time. Job ID: [id number]
[2020-11-04] MEDS: Gabapentin 100 MG CAP PO SCH (09:05)
[2020-11-04] MEDS: Dexamethasone 4 mg/ml Vial SLOW IVP SCH ×2 (09:07→20:03)
[2020-11-04] MEDS: Insulin Glargine 20 UNITS in Pre-Filled Syringe 1 EACH SC SCH (09:08)
[2020-11-04] MEDS: Enoxaparin Sodium 30 MG/0.3 ML SYRINGE SC SCH ×2 (09:08→20:05)
[2020-11-04 11:39] LABS: O2 Tension (PaO2), arterial 44.7 mmHg (> 80.0); pH, Arterial 7.24 (7.35-7.45)
[2020-11-04 11:40] LABS: Puncture Site LRA
[2020-11-04 11:41] LABS: ALV-art Gradient 598.425 mmHg (0-20)
[2020-11-04] MEDS ORDERED: Docusate 100 MG CAP PO PRN (17:32)
[2020-11-04] MEDS ORDERED: Bisacodyl 10 MG SUPP PR PRN (17:32)
--- NOTE | 2020-11-04 17:35 | PRG ---
DATE OF SERVICE: 11/04/2020 SUBJECTIVE: The patient was seen and examined. She is on life support. Noted with the following vital signs. OBJECTIVE: VITAL SIGNS: Afebrile, temperature 98.7, blood pressure 139/68, . HEENT: Remarkable for endotracheal tube in place. CARDIOVASCULAR SYSTEM: First and second heart sounds were heard. RESPIRATORY SYSTEM: Revealed vented sounds. DIGESTIVE SYSTEM: Revealed an obese abdomen. EXTREMITIES: No peripheral edema. LABORATORY INVESTIGATION: Significant for creatinine down to 3.49. IMPRESSION: 1. Acute kidney injury, seems to be showing some evidence of recovering, obviously nonoliguric. 2. Respiratory failure in the context . 3. COVID pneumonitis. 4. Morbid obesity. PLAN: 1. Continue current renal supportive measures. 2. Renally dose all medications. 3. Avoid potentially nephrotoxic agents. 4. P.r.n. diuretics. 5. Further management will be dependent on the clinical course. Job ID: [id number]
--- NOTE | 2020-11-04 17:36 | PDOC.HOSPP ---
- Subjective Subjective: remains intubated. no significant changes. no fever - Objective Vital Signs & Weight: Vital Signs (12 hours) Temp Pulse Resp BP Pulse Ox 11/04/20 16:00 98.7 F 22 H 11/04/20 14:34 66 145/66 H 11/04/20 14:17 67 143/61 H 11/04/20 14:00 22 H 11/04/20 12:50 65 146/63 H 11/04/20 12:00 98.7 F 22 H 11/04/20 10:52 67 149/65 H 11/04/20 10:00 22 H 11/04/20 09:04 67 145/67 H 11/04/20 08:00 22 H 94 L 11/04/20 07:25 65 120/55 L 11/04/20 07:00 98.3 F 11/04/20 06:00 22 H Weight Admit Weight 369 lb Weight 369 lb 9.6 oz Most Recent Monitor Data Heart Rate from ECG 66 NIBP 139/58 NIBP BP-Mean 85 Respiration from ECG 22 SpO2 92 I&O: 11/03/20 11/04/20 11/05/20 06:59 06:59 06:59 Intake Total 2659.4 2828 190 Output Total 1320 2065 465 Balance 1339.4 763 -275 Result Diagrams: 11/04/20 04:25 11/04/20 04:25 Additional Labs: Accuchecks 11/04/20 11/04/20 11/03/20 15:40 09:15 22:14 POC Glucose 459 H 415 H 389 H 11/03/20 15:24 POC Glucose 429 H Radiology Reviewed by me: Yes Hospitalist ROS - Medication Medications: Active Medications Generic Name Dose Route Start Last Admin Trade Name Freq PRN Reason Stop Dose Admin Acetaminophen 650 mg 10/30/20 20:58 11/02/20 15:03 Acetaminophen 325 Mg Tab PO 650 mg Q4H PRN Administration Headache/Fever/Mild Pain (1-3) Amlodipine Besylate 10 mg 10/31/20 09:00 11/04/20 09:04 Amlodipine 10 Mg Tab PO 10 mg DAILY RONY Administration Ascorbic Acid 1,000 mg 10/31/20 09:00 11/04/20 09:03 Ascorbic Acid 500 Mg Chewable Tablet PO 1,000 mg DAILY RONY Administration Aspirin 325 mg 10/31/20 09:00 11/04/20 09:03 Aspirin 325 Mg Tab PO 325 mg DAILY RONY Administration Atorvastatin Calcium 80 mg 10/31/20 21:00 11/03/20 19:47 Atorvastatin Calcium 40 Mg Tab PO 80 mg HS RONY Administration Carvedilol 25 mg 10/31/20 09:00 11/04/20 09:04 Carvedilol 25 Mg Tab PO 25 mg BID RONY Administration Cholecalciferol 400 units 10/31/20 09:00 11/04/20 09:04 Cholecalciferol (Vitamin D3) 400 Units Tab PO 400 units DAILY RONY Administration Dexamethasone 6 mg 10/31/20 21:00 11/04/20 09:07 Dexamethasone 4 Mg/Ml Vial SLOW IVP 6 mg BID RONY Administration Enoxaparin Sodium 30 mg 10/31/20 21:00 11/04/20 09:08 Enoxaparin Sodium 30 Mg/0.3 Ml Syringe SC 30 mg BID RONY Administration Famotidine 20 mg 11/03/20 21:00 11/03/20 19:46 Famotidine/Pf 20 Mg/2ml Vial SLOW IVP 20 mg 2100 RONY Administration Gabapentin 100 mg 11/03/20 09:00 11/04/20 09:05 Gabapentin 100 Mg Cap PO 100 mg DAILY RONY Administration Hydralazine HCl 100 mg 10/31/20 09:00 11/04/20 14:34 Hydralazine 25 Mg Tab PO 100 mg TID RONY Administration Hydralazine HCl 10 mg 10/31/20 14:03 11/02/20 05:52 Hydralazine 20 Mg/Ml Vial SLOW IVP 10 mg Q4H PRN Administration Persistent BP Elevations Fentanyl Citrate 2,000 mcg/ 100 mls @ 0 mls/hr 10/31/20 10:45 11/04/20 06:16 Sodium Chloride IV 11/30/20 10:45 100 mls INF RONY Administration Protocol Per Protocol Sodium Bicarbonate 100 meq/ 1,100 mls @ 50 mls/hr 11/01/20 11:45 11/04/20 06:17 Sodium Chloride IV 1,100 mls .Q22H RONY Administration Cefepime HCl 1 gm/ Sodium 100 mls @ 200 mls/hr 11/03/20 05:00 11/04/20 04:21 Chloride IVPB 100 mls 0500 RONY Administration Doxycycline Hyclate 100 mg/ 100 mls @ 100 mls/hr 11/03/20 11:00 11/04/20 11:17 Sodium Chloride IVPB 11/13/20 23:01 100 mls 1100,2300 RONY Administration Insulin Human Regular 0 units 11/03/20 10:45 11/04/20 15:51 Insulin Regular 300 Units/3 Ml Vial SC 13 unit .AGGRESSIVE SLIDING PRN Administration AGGRESSIVE SLIDING SCALE Protocol Isosorbide Dinitrate 60 mg 11/02/20 09:00 11/04/20 14:34 Isosorbide Dinitrate 20 Mg Tab PER TUBE 60 mg TID RONY Administration Levothyroxine Sodium 100 mcg 10/31/20 06:00 11/04/20 06:48 Levothyroxine Sodium 100 Mcg Tab PO 100 mcg 0600 RONY Administration Lorazepam 2 mg 10/31/20 10:45 11/04/20 07:28 Lorazepam 2 Mg/Ml Vial SLOW IVP 11/30/20 10:45 2 mg Q1H PRN Administration Breakthrough agitation Mometasone Furoate/Formoterol Fumar 2 puff 10/31/20 18:30 11/04/20 07:25 Mometasone 200 Mcg/Formoterol 5 Mcg 120 Puff Inhaler INH 2 puff BID-RT RONY Administration Propofol 1,000 mg 10/31/20 10:45 11/04/20 15:38 Propofol 1,000 Mg/100 Ml Vial IV 11/30/20 10:45 1,000 mg INF PRN Administration TO ACHIEVE GOAL RASS Protocol Vecuronium [place] 10 mg 11/02/20 09:02 11/04/20 14:35 Vecuronium 10 Mg Vial IV 10 mg Q1H PRN Administration Muscle Spasm Zinc Sulfate 220 mg 10/31/20 09:00 11/04/20 09:03 Zinc Sulfate 220 Mg Cap PO 220 mg DAILY RONY Administration - Exam General - other findings: intubated ENT: normocephalic atraumatic Neck: supple Heart: RRR Respiratory: CTAB Extremities: no cyanosis Skin: normal turgor Neurological: cranial nerve grossly intact Musculoskeletal: normal tone Hosp A/P - Plan The patient is an unfortunately 65 years old -[place] female with multiple comorbidities including diabetes, congestive heart failure, morbid obesity with BMI of 61.5, LIO, who was presented with knee pain, initially admitted for possible septic joint. She subsequently developed respiratory davie lure, now status post intubated. Acute hypoxic hypercapnic respiratory failure - probably combinations of COVID- 19 pneumonia and CHF exac --s/p intubation 10/31/2019 --s/p convalescent Plasma, cont Decadron, Vit C/D/Zinc, and empiric IV abx for below --appreciate pul/ID input --poor prognosis. Unable to prone d/t body habitus COVID-19 PNA --mgt as above. Not a candidate for Remdesivir d/t renal function CHF exac --BNP minimally elevated. CXR more suggestive of COVID rather than pul edema --unknown type. Will obtain echo when stable. --Lasix discontinued. Possible Septic Joint --culture aspirated from knee - so far no growth --cont IV abx with Zosyn/Vanc KALE/CKD --Nephrology is following, appreciate input LIO --on CPAP at home DM --BG exacerbated. Lantus adjusted. Cont ISS Morbid obesity with BMI 61
[2020-11-04] MEDS: Metoclopramide HCl 10 MG/2 ML VIAL IVP SCH ×2 (18:03→23:06)
[2020-11-04] MEDS: Famotidine/PF 20 mg/2ml Vial SLOW IVP SCH (20:03)
[2020-11-04] MEDS: Atorvastatin Calcium 40 MG TAB PO SCH (20:05)
[2020-11-04 20:06] VITALS: BP 136/58
[2020-11-04] MEDS ORDERED: Insulin Glargine 30 UNITS in Pre-Filled Syringe 1 EACH SC SCH (21:00)
[2020-11-05] MEDS: Propofol 1,000 MG/100 ML VIAL IV PRN ×2 (01:51→04:56)
[2020-11-05] MEDS: Vecuronium 10 MG VIAL IV PRN ×2 (01:52→03:48)
[2020-11-05] MEDS: Insulin Regular 300 UNITS/3 ML VIAL SC PRN (04:08)
[2020-11-05 04:11] VITALS: TEMP 98.2
[2020-11-05] MEDS: Cefepime 1 GM in Sodium Chloride 0.9% 100 ML IVPB SCH (04:56)
[2020-11-05] MEDS: Sodium Bicarbonate 100 MEQ in Sodium Chloride 0.45% 1,000 ML IV SCH (04:56)
[2020-11-05] MEDS: Levothyroxine Sodium 100 MCG TAB PO SCH (04:57)
[2020-11-05] MEDS: Metoclopramide HCl 10 MG/2 ML VIAL IVP SCH (04:57)
[2020-11-05 05:43] LABS: Actual Bicarbonate (HCO3a) 22.8 mEq/L (22-28); Analyzer IN Cardio OR; Base Excess (BEa) -5.6 mEq/L (-2.0 to +3.0); CO2 Tension 59.9 mmHg (35.0-45.0); Calcium, Ionized (arterial) 1.08 mmol/L (1.12-1.30); Carboxyhemoglobin (COHb) 0.4 gm% (0.0-3.0); Hemoglobin (Hb) 10.4 g/dL (12.0-16.0); Potassium - ABG Lab 4.62 mmol/L (3.70-5.30)
[2020-11-05 05:45] LABS: ALT (SGPT) 23 U/L (8-55); AST (SGOT) 54 U/L (5-34); Albumin 2.2 g/dL (3.4-4.8); Alkaline Phosphatase 50 U/L (40-110); Anion Gap 16 mmol/L (10-20); BUN (Urea Nitrogen) 69 mg/dL (9.8-20.1); Bilirubin, Total 0.3 mg/dL (0.2-1.2); CRP (Inflammatory) 26.74 mg/dL (= or < 0.5); Calc. Creatinine Clearance 40 mL/min (70-130); Calcium 7.3 mg/dL (7.8-10.44); Carbon Dioxide 25 mmol/L (23-31); Chloride 101 mmol/L (98-107); Globulin 3.5 g/dL (2.4-3.5); Glucose 539 mg/dL (80-115); Potassium 4.3 mmol/L (3.5-5.1); Protein, Total 5.7 g/dL (6.0-8.3); Sodium 138 mmol/L (136-145)
[2020-11-05 05:48] LABS: O2 Tension (PaO2), arterial 35.7 mmHg (> 80.0)
[2020-11-05 05:49] LABS: Puncture Site LRA
[2020-11-05 05:50] LABS: ALV-art Gradient 602.425 mmHg (0-20)
[2020-11-05 05:55] LABS: Band 15 % (5-11); Hemoglobin 9.7 g/dL (12.0-16.0); Lymphocytes 2 % (21-51); MDiff Complete? YES; Mean Corpuscular HGB CONC 30.4 g/dL (32.0-36.0); Mean Corpuscular Hemoglobin 28.1 pg (27.0-31.0); Mean Corpuscular Volume 92.4 fL (78.0-98.0); Mean Platelet Volume 11.1 fL (7.4-10.4); Monocytes 1 % (0-10); Neutrophil 82 % (42-75); Platelet Count 211 thou/uL (130-400); RBC Distribution Width 14.5 % (11.5-14.5); Red Blood Cell (RBC) Count 3.46 mill/uL (4.20-5.40); White Blood Cell (WBC) Count 17.1 thou/uL (4.8-10.8)
[2020-11-05] MEDS ORDERED: Sodium Bicarb 50 MEQ/50 ML Abboject 8.4% SYRINGE ONE (06:00)
[2020-11-05] MEDS ORDERED: EPINEPHrine 1 MG/10 ML Abboject SYRINGE ONE (06:00)
[2020-11-05] MEDS ORDERED: Atropine Sulfate 1 mg/10 ml Syringe ONE (06:00)
[2020-11-05] MEDS ORDERED: EPINEPHrine 4 MG in Dextrose 5% in Water 250 ML IV SCH (06:00)
--- NOTE | 2020-11-05 07:18 | PDOC.BPN ---
- Brief Progress Note Encounter Date: 11/05/20 Encounter Time: 05:55 Patient was becoming bradycardic and hypoxic on maximal vantilator support. Dr. Hunt was consulted by nurse and asked to start epinephrine drip. Patient coded about 579 am She had 3 cycles of CPR: kindly refer to code log code was called at 6;19 am Patients family was informed of her passing
[2020-11-05] MEDS ORDERED: Insulin Glargine 30 UNITS in Pre-Filled Syringe 1 EACH SC SCH (09:00)
--- NOTE | 2020-11-05 10:04 | RAD ---
PORTABLE SEMIUPRIGHT FRONTAL CHEST RADIOGRAPH: Date: 11/05/2020 COMPARISON: 11/03/2020. HISTORY: Ventilated patient. FINDINGS: Endotracheal tube and nasogastric tube present. The distal aspect of the nasogastric tube is difficul t to visualize secondary to body habitus and portable technique. There is extensive nonspecific inter stitial and alveolar opacity bilaterally, right greater than left. Aeration within the right lung has probably worsened when compared to the prior examination. IMPRESSION: Severe extensive nonspecific air space disease throughout both lungs, right greater than left. POS: [facility]
--- NOTE | 2020-11-05 18:40 | PDOC.DS.DS ---
Provider - Provider Date of Admission: 10/31/20 14:40 Date of Discharge: 11/05/20 Admitting Provider: David Cisneros Consultations: Pulmonary Primary Care Physician: Radha Sanchez Course - Hospital Course Hospital Course: The patient is an unfortunate 65 years old -[place] female who has significant past medical histories of CVA, hypertension, morbidly is obese, CKD, hypothyroidism, dyslipidemia, who presented to ED with complaint of knee pain. She was subsequently admitted to hospitalist service for possible septic joint. She had an arthrocentesis done in the ED, fluid was sent for analysis. Patient was placed on broad-spectrum IV antibiotics. ID was consulted. Her Covid came back positive. She subsequently deteriorated and developed respiratory failure. She was initially placed on BiPAP, however, she did not responded well. She was subsequently intubated. Patient was placed on maximum therapy including De cadron, convalescent plasma. She was not a candidate for remdesivir due to her renal function. ID was consulted as well as pulmonology, and nephrology. Despite aggressive measures. Patient unfortunately overnight on 11/05/2020. Please refer to the code note for further detail. Family was notified. She was pronounced on 6:18 AM Resuscitation Status: 10/30/20 20:58 Resuscitation Status Routine Resuscitation Status: FULL: Full Resuscitation - Labs Lab Results: 11/05/20 03:50 11/05/20 03:50 Abnormal Lab Results - Last 48 hrs 11/04/20 04:25: BUN 52 H, Creatinine 3.49 H, Calcium 7.4 L, AST 58 H, C-Reactive Protein 28.93 H, Serum Total Protein 5.9 L, Albumin 2.4 L, Albumin/Globulin Ratio 0.7 L 11/04/20 04:25: Ferritin 914.72 H 11/04/20 04:25: WBC 15.1 H, RBC 3.58 L, Hgb 10.1 L, Hct 32.1 L, MCHC 31.5 L, MPV 10.9 H, Band Neuts % (Manual) 25 H, Lymphocytes % (Manual) 2 L 11/04/20 07:15: ABG pH 7.24 L*, ABG pCO2 55.9 H, ABG pO2 44.7 L*, ABG O2 Sat (Measured) 72.6 L*, ABG O2 Content 13.6 L, ABG Base Excess -4.4 L, ABG Oxyhemoglobin 72.3 L, ABG Methemoglobin 0.00 L, ABG Deoxyhemoglobin 27.3 H, A-a O2 Gradient 598.425 H, Ionized Calcium 1.09 L 11/05/20 03:30: ABG pH 7.20 L*, ABG pCO2 59.9 H, ABG pO2 35.7 L*, ABG O2 Sat (Measured) 64.5 L*, ABG O2 Content 9.4 L, ABG Base Excess -5.6 L, ABG Hematocrit 31.0 L, ABG Hemoglobin 10.4 L, ABG Oxyhemoglobin 64.2 L, ABG Methemoglobin 0.00 L, ABG Deoxyhemoglobin 35.4 H, A-a O2 Gradient 602.425 H, Ionized Calcium 1.08 L 11/05/20 03:50: BUN 69 H, Creatinine 3.73 H, Calcium 7.3 L, AST 54 H, C-Reactive Protein 26.74 H, Serum Total Protein 5.7 L, Albumin 2.2 L, Albumin/Globulin Ratio 0.6 L 11/05/20 03:50: Ferritin 848.12 H 11/05/20 03:50: WBC 17.1 H, RBC 3.46 L, Hgb 9.7 L, Hct 32.0 L, MCHC 30.4 L, MPV 11.1 H, Neutrophils % (Manual) 82 H, Band Neuts % (Manual) 15 H, Lymphocytes % (Manual) 2 L Microbiology - Entire Visit 10/30/20 17:11 Venous blood - Right Hand Blood Culture - Final NO GROWTH IN 5 DAYS 10/30/20 17:11 Venous blood - Right Arm Blood Culture - Final NO GROWTH IN 5 DAYS 10/30/20 20:50 Joint - Pending Body Fluid Culture - Final 10/30/20 18:15 Nasopharyngeal swab Influenza Types A,B Direct EIA - Final - Physical Exam Vitals: Weight Admit Weight 369 lb Weight 369 lb 9.6 oz Most Recent Monitor Data Heart Rate from ECG 66 NIBP 123/55 NIBP BP-Mean 77 Respiration from ECG 22 SpO2 89 Physical Exam: The patient was seen and examined on the day of discharge. Problem - Problem (1) Acute respiratory failure Code(s): J96.00 - ACUTE RESPIRATORY FAILURE, UNSP W HYPOXIA OR HYPERCAPNIA Status: Resolved Qualifiers: Respiratory failure complication: hypoxia and hypercapnia Qualified Code(s): J96.01 - Acute respiratory failure with hypoxia; J96.02 - Acute respiratory failure with hypercapnia (2) Pneumonia due to COVID-19 virus Code(s): U07.1 - COVID-19; J12.82 - PNEUMONIA DUE TO CORONAVIRUS DISEASE 2019 Status: Acute (3) Acute on chronic renal failure Code(s): N17.9 - ACUTE KIDNEY FAILURE, UNSPECIFIED; N18.9 - CHRONIC KIDNEY DISEASE, UNSPECIFIED Status: Acute (4) Diabetes mellitus type 2 Code(s): E11.9 - TYPE 2 DIABETES MELLITUS WITHOUT COMPLICATIONS Status: Acute (5) Dyslipidemia Code(s): E78.5 - HYPERLIPIDEMIA, UNSPECIFIED Status: Acute (6) CAD (coronary artery disease) Code(s): I25.10 - ATHSCL HEART DISEASE OF [place] CORONARY ARTERY W/O ANG PCTRS Status: Chronic Qualifiers: (7) HTN (hypertension) Code(s): I10 - ESSENTIAL (PRIMARY) HYPERTENSION Status: Chronic Qualifiers: (8) Morbid obesity due to excess calories Code(s): E66.01 - MORBID (SEVERE) OBESITY DUE TO EXCESS CALORIES Status: Chronic (9) LIO (obstructive sleep apnea) Code(s): G47.33 - OBSTRUCTIVE SLEEP APNEA (ADULT) (PEDIATRIC) Status: Chronic Plan - Discharge Medications Home Medications: Medication Instructions Recorded Confirmed Type Aspirin 325 mg PO DAILY 06/17/13 10/31/20 History Carvedilol [Coreg] 25 mg PO BID 06/17/13 10/31/20 History Isosorbide Mononitrate [Imdur] 60 mg PO TID 06/17/13 10/31/20 History Levothyroxine Sodium [Levothroid] 100 mcg PO DAILY 06/17/13 10/31/20 History glipiZIDE [Glucotrol XL] 10 mg PO BID-WM 06/17/13 10/31/20 History Allopurinol 200 mg PO DAILY 02/24/17 10/31/20 History Atorvastatin Calcium [Lipitor] 80 mg PO HS 02/24/17 10/31/20 History Gabapentin 300 mg PO TID 02/24/17 10/31/20 History Insulin Detemir 100 UNITS/ML 62 unit SQ BID #0 03/01/17 10/31/20 Rx [Levemir] Potassium Chloride 20 meq PO DAILY 04/30/17 10/31/20 History hydrALAZINE HCl 100 mg PO TID 04/30/17 10/31/20 History Amlodipine Besylate [amLODIPine 10 mg PO DAILY 08/08/19 10/31/20 History Besylate] Calcitriol 0.25 mcg PO DAILY 08/08/19 10/31/20 History Insulin Aspart [Novolog] 20 unit SQ TID 08/08/19 10/31/20 History Torsemide [Demadex] 40 mg PO DAILY 08/08/19 10/31/20 History buPROPion HCl [buPROPion HCl SR] 150 mg PO DAILY 08/08/19 10/31/20 History Allergies: Sulfa (Sulfonamide Antibiotics) Allergy (Verified 10/31/20 00:47) "GO TO ITCHIN" PER DR ANDRADE REPORT - Follow up Plan Referrals: Radha Sanchez MD [Primary Care Provider] - Disposition: Quality - Care Measures CORE MEASURES:: N/A
== END 2020-11-05 06:18 | disposition expired | DRG 871 ==
LOC: ERS 16:34 → T4-B 20:58 → SURG A 10-31 10:26 → CCU 10-31 14:40 → OBSVTOIN 10-31 14:40
PROVIDERS: ADMIT Internal Medicine; ATTEND Family Medicine
PROC: 8E0ZXY6 Isolation (ICD-10-PCS; principal; 2020-10-31)
PROC: 0S9D3ZZ Drainage of Left Knee Joint, Percutaneous Approach (ICD-10-PCS; 2020-10-31)
PROC: XW13325 Transfusion of Convalescent Plasma (Nonautologous) into Peripheral Vein, Percutaneous Approach, New Technology Group 5 (ICD-10-PCS; 2020-10-31)
PROC: 06HY33Z Insertion of Infusion Device into Lower Vein, Percutaneous Approach (ICD-10-PCS; 2020-10-31)
PROC: 0BH17EZ Insertion of Endotracheal Airway into Trachea, Via Natural or Artificial Opening (ICD-10-PCS; 2020-10-31)
PROC: 5A1945Z Respiratory Ventilation, 24-96 Consecutive Hours (ICD-10-PCS; 2020-10-31)
PROC: 3E033XZ Introduction of Vasopressor into Peripheral Vein, Percutaneous Approach (ICD-10-PCS; 2020-11-05)
PROC: 5A12012 Performance of Cardiac Output, Single, Manual (ICD-10-PCS; 2020-11-05)
DX: A41.89 Other specified sepsis (principal); U07.1 COVID-19; J96.01 Acute respiratory failure with hypoxia; J96.02 Acute respiratory failure with hypercapnia; J12.82 Pneumonia due to coronavirus disease 2019; N17.9 Acute kidney failure, unspecified; Z68.44 Body mass index [BMI] 60.0-69.9, adult; I13.0 Hypertensive heart and chronic kidney disease with heart failure and stage 1 through stage 4 chronic kidney disease, or unspecified chronic kidney disease; E87.2 Acidosis; M00.9 Pyogenic arthritis, unspecified; E66.01 Morbid (severe) obesity due to excess calories; I25.10 Atherosclerotic heart disease of native coronary artery without angina pectoris; E03.9 Hypothyroidism, unspecified; E78.5 Hyperlipidemia, unspecified; E11.22 Type 2 diabetes mellitus with diabetic chronic kidney disease; G47.33 Obstructive sleep apnea (adult) (pediatric); I50.9 Heart failure, unspecified; I89.0 Lymphedema, not elsewhere classified; K76.0 Fatty (change of) liver, not elsewhere classified; N18.30 Chronic kidney disease, stage 3 unspecified; E78.00 Pure hypercholesterolemia, unspecified; G89.29 Other chronic pain; E11.65 Type 2 diabetes mellitus with hyperglycemia; Z88.2 Allergy status to sulfonamides; Z86.73 Personal history of transient ischemic attack (TIA), and cerebral infarction without residual deficits; Z90.710 Acquired absence of both cervix and uterus; Z87.891 Personal history of nicotine dependence; Z79.4 Long term (current) use of insulin; Z98.890 Other specified postprocedural states; Z79.82 Long term (current) use of aspirin; Z79.899 Other long term (current) drug therapy; Z79.890 Hormone replacement therapy; R00.1 Bradycardia, unspecified; M25.561 Pain in right knee; M25.562 Pain in left knee; M25.461 Effusion, right knee; I70.90 Unspecified atherosclerosis; M17.0 Bilateral primary osteoarthritis of knee; M25.862 Other specified joint disorders, left knee
CPT/HCPCS: 20611; 36415; 36416; 36430; 36600; 71045; 71046; 74176; 80053; 80202; 82728; 82805; 82945; 83605; 83735; 83880; 84443; 85007; 85025; 85027; 85060; 85652; 86140; 86850; 86900; 86901; 87040; 87070; 87205; 87635; 87804; 89051; 89060; 94002; 94003; 94660; 94760; 96365; 96366; 96367; 96375; G0378; J0171; J0360; J0461; J0692; J1100; J1642; J1650; J1815; J1940; J2060; J2270; J2704; J2765; J3010; J3370; J3490; J7030; P9017; S0028; U0003